=== PATIENT | male | born 1940 | race Caucasian/White ===

== ENCOUNTER 2016-12-03 22:24 | Emergency (ER) | payer MEDICARE ==
[~2016-12-03] VITALS: Ht 162.6 cm; Wt 84.0 kg
[~2016-12-03 22:24] MED LIST: ALPRAZOLAM0.5 MG PO; ANASTROZOLE1 MG PO; ASPIRIN EC81 MG PO; ASPIRIN LOW DOS81 MG PO; B-121000 MCG SL; CIPRO XR500 M2 PO; CIPROFLOXACN500 MG PO; CLONAZEPAM0.5 MG PO; CYTOTEC100 MCG PO; DALMANE30 MG OR; DIOVAN80 MG OR; DURAGESIC75 MCG/HR TD; FAMCICLOVIR500 MG PO; FISH OIL1200 M1 PO; FLOMAX0.4 M1 PO; FLOMAX0.4 MG OR; FOLIC ACID400 MC1 PO; LEVOTHYROXIN100 MCG PO; LISINOPRIL20 MG PO; LOPRESSOR50 MG OR; METO50TA52 PO; MORPHINE SUL30 M3 PO; MS CONTIN30 MG PO; NEURONTIN300 MG OR; PANTOPRAZOLE SO40 MG PO; PERCOCET 10/31 COMBO PO; PERCOCET1 TA1 OR; PREVACID30 M1 OR; PYRIDIUM200 MG PO; RESTORIL15 MG PO; RESTORIL30 MG OR; SIMVASTATIN40 MG PO; TESTOSTERON200 MG/ML IM; ULTRAM50 MG OR; VITAMIN D5000 UNIT PO; VYTORIN 10/401 TAB OR; XANAX XR0.5 MG PO; XANAX0.5 MG OR; XANAX0.5 MG PO; ZOFRAN ODT4 MG OR
[2016-12-03] MEDS ORDERED: LOPRESSOR50 M2 PO (22:54)
[2016-12-03] MEDS ORDERED: MORPHINE SULFAT60 M2 PO (22:57)
[2016-12-03] MEDS ORDERED: PERCOCET 10/31 COMBO PO (22:58)
[2016-12-03] MEDS ORDERED: FERROUS SULF324 M1 PO (23:01)
[2016-12-04 00:41] LABS: ACT PARTIAL THROMBO TIME 20.8 SECONDS (20.0-32.5); PROTHROMBIN TIME 10.9 SECONDS (9.0-12.5)
[2016-12-04 00:49] LABS: HEMATOCRIT 26.2 % (39.0-50.0); HEMOGLOBIN 9.1 g/dl (14.0-18.0); IMMATURE GRANULOCYTES 0.3 % (0.0-1.0); MEAN CELL VOLUME 92.6 fL CALC (80.0-100.0); MEAN CORPUSCULAR HGB 32.2 pG CALC (26.0-32.0); MEAN CORPUSCULAR HGB CONC 34.7 g/L CALC (32.0-36.0); NEUT# 9.7 thou/uL (1.82-7.42); RED BLOOD COUNT 2.83 mill/uL (4.70-6.10); RED CELL DISTRI WIDTH 13.6 % (11.5-15.5)
[2016-12-04 01:07] LABS: ALBUMIN 3.8 g/dL (3.2-5.0); ALKALINE PHOSPHATASE 80 u/l (38-126); AMYLASE 61 u/l (30-110); ANION GAP 14 (6-22 (CALC)); BILIRUBIN, TOTAL 0.5 mg/dL (0.0-1.4); BUN 11 mg/dL (8-23); BUN/CREATININE RATIO 15 (12-20 (CALC)); CALCIUM 9.5 mg/dL (8.4-10.2); CARBON DIOXIDE 20 mmol/l (22-30); CHLORIDE 96 mmol/l (95-108); CREATININE 0.7 mg/dL (0.7-1.3); GFR > 60 ML/MIN (>=60 (CALC)); GFR FOR AFR.AMER. > 60 ML/MIN (>=60 (CALC)); GLUCOSE 113 mg/dL (82-115); LIPASE 208 u/l (23-300); POTASSIUM 3.8 mmol/l (3.5-5.1); SGOT/AST 18 u/l (19-48); SGPT/ALT 25 u/l (11-66); SODIUM 127 mmol/l (137-146); TOTAL PROTEIN 6.8 g/dL (6.3-8.2)
[2016-12-04 01:17] LABS: MYOGLOBIN 104 ng/mL (0 - 121)
[2016-12-04 03:38] LABS: URINE BILIRUBIN - DIPSTICK NEGATIVE (NEGATIVE); URINE BLOOD DIPSTICK SMALL (NEGATIVE); URINE CLARITY CLEAR; URINE COLOR YELLOW; URINE GLUCOSE - DIPSTICK NEGATIVE (NEGATIVE); URINE KETONE 15 mg/dL (NEGATIVE); URINE LEUK ESTERASE TRACE (NEGATIVE); URINE NITRITE - DIPSTICK NEGATIVE (Negative); URINE PROTEIN - DIPSTICK NEGATIVE (NEG-TRACE); URINE SPECIFIC GRAVITY 1.015; URINE UROBILINOGEN - DIPSTICK 0.2 E.U./dL (0.2)
[2016-12-04 03:40] LABS: URINE RBC 0-2 RBC/hpf (0-5)
[2016-12-04 03:41] LABS: URINE BACTERIA FEW hpf; URINE SQUAMOUS EPITHELIAL CELL RARE EPI/hpf (0-FEW); URINE YEAST MODERATE hpf
[2016-12-04] MEDS ORDERED: BACTRIM DS1 TAB PO (03:58)
[2016-12-04 04:20] VITALS: BP 151/70
== END 2016-12-04 04:20 | disposition home or self-care (01) ==
LOC: ED 22:24 → ED-I 12-04 01:21 → ED 12-04 04:20
PROVIDERS: Emergency Medicine
DX: N39.0 Urinary tract infection, site not specified (principal); G89.29 Other chronic pain; D64.9 Anemia, unspecified; B96.20 Unspecified Escherichia coli [E. coli] as the cause of diseases classified elsewhere; R11.2 Nausea with vomiting, unspecified; R53.1 Weakness; I10 Essential (primary) hypertension; I25.810 Atherosclerosis of coronary artery bypass graft(s) without angina pectoris; Z95.1 Presence of aortocoronary bypass graft

== ENCOUNTER 2016-12-13 00:12 | Emergency (ER) | payer MEDICARE ==
[2016-12-13] VITALS (14 sets, daily range): BP systolic 54–122; BP diastolic 38–69
[~2016-12-13] VITALS: Ht 162.6 cm; Wt 90.9 kg
[~2016-12-13 00:12] MED LIST changes: +BACTRIM DS1 TAB PO; +FERROUS SULF324 M1 PO; +LOPRESSOR50 M2 PO; +MORPHINE SULFAT60 M2 PO
--- NOTE | 2016-12-13 00:23 | NUR ---
ARRIVES VIA [facility]. IVF IN PROGRESS, VIA NUMBER 22 IN THE RIGHT WRIST.
[2016-12-13] MEDS ORDERED: LISINOPRIL20 MG PO (00:41)
[2016-12-13] MEDS ORDERED: CLONAZEPAM1 MG PO (00:44)
--- NOTE | 2016-12-13 00:45 | NUR ---
PT'S B/P DOWN TO . DR SIDHU INFORMED. NS 2 LITERS UP TO B/L IV SITES.
[2016-12-13] MEDS ORDERED: CARAFATE1 GM PO (00:46)
[2016-12-13 00:48] LABS: IMMATURE GRANULOCYTES 0.6 % (0.0-1.0); MEAN CELL VOLUME 98.5 fL CALC (80.0-100.0); MEAN CORPUSCULAR HGB 31.6 pG CALC (26.0-32.0); MEAN CORPUSCULAR HGB CONC 32.1 g/L CALC (32.0-36.0); NEUT# 6.61 thou/uL (1.82-7.42); RED BLOOD COUNT 1.96 mill/uL (4.70-6.10); RED CELL DISTRI WIDTH 14.4 % (11.5-15.5)
[2016-12-13 00:55] LABS: PROTHROMBIN TIME 10.5 SECONDS (9.0-12.5)
[2016-12-13 00:58] LABS: ALKALINE PHOSPHATASE 74 u/l (38-126); AMYLASE 62 u/l (30-110); ANION GAP 16 (6-22 (CALC)); BILIRUBIN, TOTAL 0.2 mg/dL (0.0-1.4); BUN 19 mg/dL (8-23); BUN/CREATININE RATIO 11 (12-20 (CALC)); CALCIUM 8.5 mg/dL (8.4-10.2); CARBON DIOXIDE 18 mmol/l (22-30); CHLORIDE 104 mmol/l (95-108); CREATININE 1.8 mg/dL (0.7-1.3); GFR 37 ML/MIN (>=60 (CALC)); GFR FOR AFR.AMER. 45 ML/MIN (>=60 (CALC)); GLUCOSE 158 mg/dL (82-115); LIPASE 158 u/l (23-300); POTASSIUM 4.8 mmol/l (3.5-5.1); SGOT/AST 15 u/l (19-48); SGPT/ALT 21 u/l (11-66); SODIUM 133 mmol/l (137-146); TOTAL PROTEIN 5.6 g/dL (6.3-8.2)
[2016-12-13 01:01] LABS: HEMATOCRIT 19.3 % (39.0-50.0); HEMOGLOBIN 6.2 g/dl (14.0-18.0)
[2016-12-13 01:13] LABS: MYOGLOBIN 136 ng/mL (0 - 121)
--- NOTE | 2016-12-13 01:52 | NUR ---
PT COMPLETED 2 LITERS NS HERE AND 750ML BY EMS. LR AT 100 UP NOW. B/P 70//
[2016-12-13 01:54] LABS: URINE BILIRUBIN - DIPSTICK NEGATIVE (NEGATIVE); URINE BLOOD DIPSTICK NEGATIVE (NEGATIVE); URINE CLARITY CLEAR; URINE COLOR YELLOW; URINE GLUCOSE - DIPSTICK NEGATIVE (NEGATIVE); URINE KETONE NEGATIVE (NEGATIVE); URINE LEUK ESTERASE NEGATIVE (NEGATIVE); URINE PH 5.5 (4.5-8.0); URINE PROTEIN - DIPSTICK NEGATIVE (NEG-TRACE); URINE UROBILINOGEN - DIPSTICK 0.2 E.U./dL (0.2)
[2016-12-13 01:59] LABS: URINE NITRITE - DIPSTICK POSITIVE (Negative)
[2016-12-13 02:09] LABS: URINE BACTERIA FEW hpf; URINE HYALINE CAST FEW lpf (NONE-RARE); URINE RBC 0-2 RBC/hpf (0-5); URINE SQUAMOUS EPITHELIAL CELL FEW EPI/hpf (0-FEW)
--- NOTE | 2016-12-13 02:24 | NUR ---
PT WAS ON WAY TO CT, THEN BACK TO ROOM CT ON HOLD. 1ST UNIT OF PRBC UP.
[2016-12-13 02:30] LABS: BARBITURATES NEGATIVE (NEGATIVE); COCAINE NEGATIVE (NEGATIVE); METHADONE NEGATIVE (NEGATIVE); OXCYCODONE POSITIVE (NEGATIVE); TETRAHYDROCANNABIONOL NEGATIVE (NEGATIVE); TRICYLIC ANTIDEPRESSANTS NEGATIVE (NEGATIVE)
--- NOTE | 2016-12-13 02:35 | NUR ---
MEASURED PT'S HENATOMA TO LEFT RIB AREA AND 23CM BY 9 CM. BLOOD INFUSING, PT KEEPS STATING HE WANTS TO LIVE.
--- NOTE | 2016-12-13 03:10 | NUR ---
PT BACK FROM CT, ANOTHER WARM BLANKET APPLIED.
--- NOTE | 2016-12-13 03:20 | NUR ---
JUNAID COTA TOOK OVER PT CARE. PT ADMITTED. NO REACTION FROM BLOOD AT THIS TIME. IV LR AND BLOOD INFUSING TO 2 IV SITES.
--- NOTE | 2016-12-13 03:20 | NUR ---
report received from ER Timothy Rubalcava RN; pt admit ER-10 (ICU overflow); admission assessment completed at this time; pt alert and oriented; denies pain at current; no n/v noted; c/c weakness, feeling faint, dizziness and diarrhea (pt admits to taking a laxative for constipation prior to diarrhea); resp even and unlabored; lungs clear right whitley/sign. diminished left whitley; skin color pale; o2 per nc at 2L; hr reg; st/pvc on monitor; weak pedal pulses; trace edema noted to ble; abd soft/distended with bs present; last bm 12/10/16; benton to gravity draining clear yellow urine; cath strap intact; #18 in rh with prbc's infusing per protocol; #20 in lw patent with lr bolus infusing; no redness or edema noted at site; generalized bruising/ecchymosis noted to upper extremities; lg bruise/hematoma noted to left lat. torso measuring 24cm x 9cm; painful to touch; repositioned for comfort; oriented to call light system; will continue to monitor closely
--- NOTE | 2016-12-13 04:00 | NUR ---
awake; 1st unit of prbc's continue to infuse without difficulty; no s/sx of reaction noted; spouse remains at bedside; pt with complaints of back pain; informed tylenol can be given; pt requesting xanax/ morphine/percocet; pt informed bp is currently too low for sedatives or narcotics; repositioned for comfort; will continue to monitor
--- NOTE | 2016-12-13 04:45 | NUR ---
2nd unit of prbc's completed; iv flushed and patent/tubing changed; no s/sx of reaction noted; spouse remains at bedside; pt continues with complaints of lower back pain and neck pain rating 10/10; will medicate with percocet; st/pvc on mointor; benton to gravity; will continue to monitor
--- NOTE | 2016-12-13 04:50 | NUR ---
2nd unit of prbc's verified at bedside as per protocl; pt explained s/sx of possible reaction and to notify staff immed.; prbc's initiated; percocet explained and administered; repositioned for comfort; pt and spouse updated on plan of care including transfer to different facility for higher level of care; po fluids provided; will continue to monitor
--- NOTE | 2016-12-13 05:24 | NUR ---
spouse Justine has departed; request to be call prior to transfer at [phone]
--- NOTE | 2016-12-13 05:46 | NUR ---
spouse Justine called per credit underwriter; spouse updated pt will be transferred to [facility] via [facility] in approx 30 min; appreciative of update and care
--- NOTE | 2016-12-13 05:58 | NUR ---
report called to JUNAID Kim at [facility]
--- NOTE | 2016-12-13 06:05 | NUR ---
[facility] ON UNIT; REPORT GIVEN
--- NOTE | 2016-12-13 06:28 | NUR ---
prbc's infusing per pump/remainder of prbc's released with [facility] transport; pt discharged via stretcher in stable condition; belongings sent with pt;
== END 2016-12-13 06:28 | disposition short-term general hospital (02) ==
LOC: ED 00:12 → ED-I 01:55 → ED 02:13 → ED-I 02:14 → ED 02:14 → ED-I 06:28 → ED 06:28
PROVIDERS: Internal Medicine
PROC: 0T9B70Z Drainage of Bladder with Drainage Device, Via Natural or Artificial Opening (ICD-10-PCS; principal; 2016-12-13)
PROC: 30233N1 Transfusion of Nonautologous Red Blood Cells into Peripheral Vein, Percutaneous Approach (ICD-10-PCS; 2016-12-13)
DX: N39.0 Urinary tract infection, site not specified (principal); D64.9 Anemia, unspecified; I95.9 Hypotension, unspecified; E86.1 Hypovolemia; J94.2 Hemothorax; I25.810 Atherosclerosis of coronary artery bypass graft(s) without angina pectoris; Z95.1 Presence of aortocoronary bypass graft; Z91.81 History of falling; R19.7 Diarrhea, unspecified; R53.1 Weakness
CPT/HCPCS: P9016; S0164

== ENCOUNTER 2018-11-14 17:45 | Inpatient (IN) | payer MEDICARE ==
[~2018-11-14] VITALS: Ht 162.6 cm; Wt 108.0 kg
[~2018-11-14 17:45] MED LIST changes: +CARAFATE1 GM PO; +CLONAZEPAM1 MG PO
--- NOTE | 2018-11-14 17:58 | NUR ---
PT ARRIVED VIA EMS. PT DIFFICULTY RECALLING HISTORY. STATES IS RELATED TO NOT FEELING WELL. ORIENTED X3.
[2018-11-14 18:36] LABS: HEMATOCRIT 29.3 % (39.0-50.0); HEMOGLOBIN 9.8 g/dl (14.0-18.0); IMMATURE GRANULOCYTES 0.7 % (0.0-5.0); MEAN CELL VOLUME 94.2 fL CALC (80.0-100.0); MEAN CORPUSCULAR HGB 31.5 pG CALC (26.0-32.0); MEAN CORPUSCULAR HGB CONC 33.4 g/L CALC (32.0-36.0); NEUT# 14.29 thou/uL (1.82-7.42); RED BLOOD COUNT 3.11 mill/uL (4.70-6.10)
--- NOTE | 2018-11-14 18:37 | NUR ---
PATIENT MEDICATED WITH TYLENOL AND MOTRIN FOR FEVER.
--- NOTE | 2018-11-14 18:40 | NUR ---
PATIENT REPORT GIVEN TO JUNAID NELSON. CARE RELINQUISHED.
[2018-11-14 18:55] LABS: ALBUMIN 4.3 g/dL (3.2-5.0); ALKALINE PHOSPHATASE 84 u/l (38-126); ANION GAP 18 (6-22 (CALC)); BUN 17 mg/dL (8-23); BUN/CREATININE RATIO 16 (12-20 (CALC)); CARBON DIOXIDE 28 mmol/l (22-30); CHLORIDE 91 mmol/l (95-108); CREATININE 1.1 mg/dL (0.7-1.3); GFR > 60 ML/MIN (>=60 (CALC)); GFR FOR AFR.AMER. > 60 ML/MIN (>=60 (CALC)); SGOT/AST 24 u/l (19-48); SODIUM 133 mmol/l (137-146); TOTAL PROTEIN 7.6 g/dL (6.3-8.2)
[2018-11-14 18:57] LABS: BILIRUBIN, TOTAL 0.6 mg/dL (0.0-1.4)
[2018-11-14 19:05] LABS: MYOGLOBIN 105 ng/mL (0 - 121)
[2018-11-14 19:26] LABS: URINE BILIRUBIN - DIPSTICK NEGATIVE (NEGATIVE); URINE BLOOD DIPSTICK TRACE-INTACT (NEGATIVE); URINE COLOR YELLOW; URINE GLUCOSE - DIPSTICK NEGATIVE (NEGATIVE); URINE KETONE NEGATIVE (NEGATIVE); URINE PH 6.5 (4.5-8.0); URINE PROTEIN - DIPSTICK NEGATIVE (NEG-TRACE); URINE UROBILINOGEN - DIPSTICK 0.2 E.U./dL (0.2)
[2018-11-14 19:29] LABS: URINE LEUK ESTERASE SMALL (NEGATIVE); URINE NITRITE - DIPSTICK POSITIVE (Negative)
--- NOTE | 2018-11-14 19:30 | NUR ---
DISCUSSED TREATMENT AND ADMISSION PLANS.
[2018-11-14 19:35] LABS: URINE BACTERIA MODERATE hpf
[2018-11-14] MEDS ORDERED: SEROQUEL100 MG PO (20:36)
[2018-11-14 21:30] VITALS: BP 121/51
--- NOTE | 2018-11-14 21:30 | NUR ---
Admission Note Report Given to: JUNAID LAGOS Transported by: Wheelchair X Stretcher Transported with: X Nurse Transporter X Patent IV O2 X Rn Clinician
--- NOTE | 2018-11-14 22:00 | NUR ---
PATIENT ADMITTED FROM ER VIA STRETCHER WITH ER STAFF IN ATTENDANCE. PATIENT TRANSFERRED TO BED. PATIENT AWAKE ALERT AND ORIENTEDX3. AT BEDSIDE. PATIENT WITH RAMIREZ CATH PATENT AND DRAINING CLEAR YELLOW URINE. PATIENT WITH IV SITE TO LEFT HAND-IVF NS HUNG AND INFUSING AT 100CC/HR. SITE IS HEALTHY AT THIS TIME. TELE MONITOR IN PLACE. 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 PATIENT NECK WITH TILT TO THE LEFT-STATES RESULT OF NECK INSURY AND SURGERY YEARS AGO. PATIENT WITH CHRONIC PAIN ISSUES-MEDICATED WITH MORPHINE ER 60MG PO ORDERED AND WITH PERCOCET FOR LOWER BACK PAIN. MEDICATED WITH SEROQUEL ORDERED. ORIENTED TO ROOM AND SURROUNDINGS. INSTRUCTED ON USE OF NURSE CALL LIGHT AND TV REMOTE. PROVIDED WITH COT AND LINENS TO STAY THE NIGHT. SAFETY PRECAUTIONS REINFORCED. CALL LIGHT IN REACH. WILL CONT TO MONITOR.
[2018-11-14 23:34] VITALS: BP 106/46
--- NOTE | 2018-11-15 04:00 | NUR ---
PATIENT APPEARS SLEEPING WITH EYES CLOSED-HOB SLIGHTLY ELEVATED. RESP ARE SHALLOW AND UNLABORED. RESTING ON COT PROVIDED. IVF PATENT AND INFUSING AT 100CC/HR VIA LEFT HAND SITE. TELE MONITOR IN PLACE. RAMIREZ PATENT AND DRAINING YELLOW URINE. CALL LIGHT IN REACH. WILL CONT TO MONITOR.
[2018-11-15 05:28] VITALS: BP 88/42
[2018-11-15 08:38] VITALS: BP 90/50
--- NOTE | 2018-11-15 08:43 | NUR ---
REPORT WAS RECEIVED FROM YOLIS .ASSESSMENT DONE. TELE IN PLACE. PT IS A&O X3 BUT CAN BE FORGETFUL AT TIMES. MEDICATED PT WITH MORPHINE PO FOR PAIN IN FEET 12/15 SEE EMAR. LEGS ELEVATED ON PILLOWS. RAMIREZ IS PATENT WITH YELLOW URINE. PT UNSURE WHEN HIS LAST BM WAS. IVF INFUSING WELL. IN ROOM. CALL LIGHT IN REACH.
--- NOTE | 2018-11-15 11:30 | NUR ---
DR. FRANKLIN AT BEDSIDE TO ASSESS PT. IN ROOM. NOTIFIED MD THAT I DID NOT GAVE PT BP MEDICATION DUE TO BP WAS 90/50. CALL LIGHT IN REACH.
[2018-11-15 11:31] VITALS: BP 95/53
--- NOTE | 2018-11-15 13:28 | NUR ---
PHARMACY CALLED TO TALK TO PATIENT. DISCUSSED PATIENT MEDICATION AND SIDE EFFECTS. DISCUSSED PATIENT'S PAST MEDICAL HISTORY AND ABOUT UPCOMING APPOINTMENTS. PATIENT STATED THAT HE AND HIS PHYSICIANS ARE TRYING TO CUT BACK ON PAIN MEDICATIONS AND TOLD ME ABOUT HIS SUCCESS SO FAR. PATIENT STATED NO FURTHER QUESTIONS OR CONCERNS.
[2018-11-15 15:29] VITALS: BP 98/53
--- NOTE | 2018-11-15 15:49 | NUR ---
MEDICATED PT WITH TYLENOL FOR TEMP 100.2. ROOM MADE COOL. PT WANTS HIS PERCOCET TOLD PT IS NOT DUE YET. PT VERBALIZED UNDERSTANDING. PT DENIES ANY OTHER NEEDS AT THIS TIME. IN ROOM. CALL LIGHT IN REACH.
--- NOTE | 2018-11-15 18:38 | NUR ---
CHECK PT TEMP IS 102.0. MADE ROOM COOL AND ICE PACK APPLIED TO PT. CALL LIGHT IN REACH.
--- NOTE | 2018-11-15 18:55 | NUR ---
REPORT RECEIVED FROM JUNAID IZAGUIRRE. PT RESTING IN BED. FAMILY AT BED SIDE. ALERT AND ORIENTED. RESPIRATIONS EVEN AND UNLABORED ON RA. LUNGS SOUND CLEAR DIMINISHED. PEDAL PULSES STRONG. IV #22 LH PATENT AND APPEARS HEALTHY. TELE IN PLACE. SAFETY PRECAUTIONS IN PLACE. WILL CONTINEUT TO MONITOR.
[2018-11-15 19:00] VITALS: BP 90/48
[2018-11-15 23:09] VITALS: BP 102/52
[2018-11-16] VITALS (7 sets, daily range): BP systolic 86–120; BP diastolic 48–62
--- NOTE | 2018-11-16 00:23 | NUR ---
PT HYPOTENSIVE. PT PLACED IN [place] POSITION. NOTED TO BE EFFECTIVE.
[2018-11-16 03:57] LABS: HEMATOCRIT 31.9 % (39.0-50.0); HEMOGLOBIN 10.3 g/dl (14.0-18.0); IMMATURE GRANULOCYTES 2.5 % (0.0-5.0); MEAN CELL VOLUME 98.8 fL CALC (80.0-100.0); MEAN CORPUSCULAR HGB 31.9 pG CALC (26.0-32.0); MEAN CORPUSCULAR HGB CONC 32.3 g/L CALC (32.0-36.0); RED BLOOD COUNT 3.23 mill/uL (4.70-6.10); RED CELL DISTRI WIDTH 14.6 % (11.5-15.5)
[2018-11-16 03:58] LABS: MANUAL DIFFERENTIAL YES; PLATELET COUNT 167 thou/uL (130-400)
[2018-11-16 04:10] LABS: PLATELET ESTIMATE NORMAL
[2018-11-16 04:14] LABS: BILIRUBIN, TOTAL 0.4 mg/dL (0.0-1.4); CREATININE 1.4 mg/dL (0.7-1.3); MAGNESIUM 1.8 mg/dL (1.6-2.3); POTASSIUM 4.5 mmol/l (3.5-5.1); TOTAL PROTEIN 6.2 g/dL (6.3-8.2)
[2018-11-16 04:15] LABS: ALBUMIN 3.3 g/dL (3.2-5.0)
--- NOTE | 2018-11-16 04:15 | NUR ---
PT RESTING IN BED. RESPIRATIONS SHALLOW ON RA. SAFETY PRECAUTIONS IN PLACE. WILL CONTINUE TO MONITOR.
--- NOTE | 2018-11-16 07:45 | NUR ---
PT RESTING IN BED WITH EYES CLOSED. AROUSES TO VERBAL STIMULI. PT IS ALERT AND ORIENTED X3. SHIFT ASSESSMENT COMPLETED AT THIS TIME. IV PATENT 1. CALL LIGHT IN REACH. WILL CONTINUE TO MONITOR
--- NOTE | 2018-11-16 11:03 | NUR ---
DR FRANKLIN AT BEDSIDE TO DISCUSS PLAN OF CARE
--- NOTE | 2018-11-16 12:00 | NUR ---
PT RESTING IN BED AT BEDSIDE. RESP ARE EVEN AND UNLABORED. NO DISTRESS NOTED. CALL LIGHT IN REACH. WILL CONTINUE TO MONITOR.
--- NOTE | 2018-11-16 15:39 | NUR ---
PT RESTING IN BED RESP ARE EVEN AND UNALBROED. VISITORS IN ROOM. RESP ARE EVEN AND UNLABORED. NO DISTRESS NOTED. CALL LIGHT IN REACH. WILL CONTINUE TO MONITOR.
--- NOTE | 2018-11-16 18:50 | NUR ---
REPORT RECEIVED FROM JUNAID VARGAS. PT RESTING IN BED, WITH EYES CLOSED. RESPIRATIONS EVEN AND UNLABORED ON RA. WILL CONTINUE TO MONITOR
--- NOTE | 2018-11-16 21:40 | NUR ---
PT RESTING IN BED ALERT AND ORIENTED. REPIRATIONS EVEN AND UNLABORED ON RA. LUNGS SOUND CLEAR/DIMINISHED. PEDAL PULSES WEAK. TELE IN PLACE. RAMIREZ DRAINING TO GRAVITY. PT ENCOURAGED TO USE CALL LEYVA IF ANY NEEDS SHOULD ARISE. SAFETY PRECAUTIONS IN PLACE. WILL CONTINUE TO MONITOR.
[2018-11-17 00:24] VITALS: BP 123/62
--- NOTE | 2018-11-17 01:43 | NUR ---
PT RESTING IN BED WITH EYES CLOSED. RESPIRATIONS EVEN AND UNLABORED ON RA. NO S/S OF DISTRESS AT THIS TIME. WILL CONTINUE TO MONITOR.
--- NOTE | 2018-11-17 03:47 | NUR ---
PT RESTING IN BED WITH EYES CLOSED, RESPIRATIONS EVEN AND UNLABORED ON RA. NO S/S OF DISTRESS AT THIS TIME. WILL CONTNINUE TO MONITOR.
[2018-11-17 04:30] VITALS: BP 120/50
[2018-11-17 05:25] LABS: HEMATOCRIT 30.9 % (39.0-50.0); HEMOGLOBIN 9.9 g/dl (14.0-18.0); IMMATURE GRANULOCYTES 0.6 % (0.0-5.0); MEAN CELL VOLUME 99.4 fL CALC (80.0-100.0); MEAN CORPUSCULAR HGB 31.8 pG CALC (26.0-32.0); NEUT# 12.49 thou/uL (1.82-7.42); RED BLOOD COUNT 3.11 mill/uL (4.70-6.10); RED CELL DISTRI WIDTH 14.6 % (11.5-15.5)
[2018-11-17 05:46] LABS: ALBUMIN 3.1 g/dL (3.2-5.0); ALKALINE PHOSPHATASE 81 u/l (38-126); ANION GAP 14 (6-22 (CALC)); BILIRUBIN, TOTAL 0.4 mg/dL (0.0-1.4); BUN 15 mg/dL (8-23); BUN/CREATININE RATIO 17 (12-20 (CALC)); CARBON DIOXIDE 24 mmol/l (22-30); CHLORIDE 100 mmol/l (95-108); CREATININE 0.9 mg/dL (0.7-1.3); GFR > 60 ML/MIN (>=60 (CALC)); GFR FOR AFR.AMER. > 60 ML/MIN (>=60 (CALC)); SGOT/AST 26 u/l (19-48); SODIUM 133 mmol/l (137-146); TOTAL PROTEIN 6.1 g/dL (6.3-8.2)
--- NOTE | 2018-11-17 06:45 | NUR ---
RECIEVED REPORT FROM JUNAID YU. ASSUMED PT CARE.
[2018-11-17 08:30] VITALS: BP 120/68
--- NOTE | 2018-11-17 08:30 | NUR ---
PT A&OX3, ABLE TO MAKE NEEDS KNOWN. ASSESSMENT COMPLETED. JAMES REMAINS PATENT DRAINING TO BSD VIA GRAVITY. PT AFEBRILE. CALL LIGHT IN REACH. OFFERS NO COMPLAINTS AT THIS TIME. CALL LIGHT IN REACH. WILL MONITOR.
[2018-11-17 11:27] VITALS: BP 123/71
[2018-11-17] MEDS ORDERED: ROCEPHIN 2 GM2 GM IM (11:56)
--- NOTE | 2018-11-17 12:30 | NUR ---
DR. CULP AND CARLA BURNETT AT BEDSIDE FOR ASSESSMENT AND TO DISCUSS PLAN OF CARE.
[2018-11-17 15:05] VITALS: BP 120/70
--- NOTE | 2018-11-17 15:30 | NUR ---
IV site discontinued, cath intact. No edema , no redness, voices no discomfort.
--- NOTE | 2018-11-17 15:58 | NUR ---
Discharge instructions given. Patient verbalizes understanding of same. Discharged in stable condition via Wheelchair to Home with family. All belongings sent with pt.
== END 2018-11-17 16:00 | DRG 699 ==
LOC: ED 17:45 → ED-I 20:11 → ED 20:37 → MS2 20:38
PROVIDERS: Emergency Medicine; Internal Medicine Nephrology; ADMIT Internal Medicine; ATTEND Internal Medicine
PROC: 0T9B70Z Drainage of Bladder with Drainage Device, Via Natural or Artificial Opening (ICD-10-PCS; principal; 2018-11-14)
DX: T83.518A Infection and inflammatory reaction due to other urinary catheter, initial encounter (principal); N39.0 Urinary tract infection, site not specified; I10 Essential (primary) hypertension; I48.91 Unspecified atrial fibrillation; I73.9 Peripheral vascular disease, unspecified; I25.10 Atherosclerotic heart disease of native coronary artery without angina pectoris; F41.8 Other specified anxiety disorders; M19.90 Unspecified osteoarthritis, unspecified site; E03.9 Hypothyroidism, unspecified; K21.9 Gastro-esophageal reflux disease without esophagitis; N40.1 Benign prostatic hyperplasia with lower urinary tract symptoms; R33.8 Other retention of urine; D63.8 Anemia in other chronic diseases classified elsewhere; G89.21 Chronic pain due to trauma; Z95.1 Presence of aortocoronary bypass graft; B96.89 Other specified bacterial agents as the cause of diseases classified elsewhere; Y84.6 Urinary catheterization as the cause of abnormal reaction of the patient, or of later complication, without mention of misadventure at the time of the procedure; Z96.652 Presence of left artificial knee joint
CPT/HCPCS: G0378

== ENCOUNTER 2019-05-03 02:06 | Inpatient (IN) | payer MEDICARE ==
[~2019-05-03] VITALS: Ht 175.3 cm; Wt 104.0 kg
[~2019-05-03 02:06] MED LIST changes: +ROCEPHIN 2 GM2 GM IM; +SEROQUEL100 MG PO
--- NOTE | 2019-05-03 02:08 | NUR ---
BY EMS TO ROOM 6
--- NOTE | 2019-05-03 02:50 | NUR ---
TOLERATED RAMIREZ PLACEMENT WELL.
[2019-05-03 03:24] LABS: HEMOGLOBIN 10.1 g/dl (14.0-18.0); IMMATURE GRANULOCYTES 0.4 % (0.0-5.0); MEAN CELL VOLUME 95.2 fL CALC (80.0-100.0); MEAN CORPUSCULAR HGB 32.1 pG CALC (26.0-32.0); MEAN CORPUSCULAR HGB CONC 33.7 g/L CALC (32.0-36.0); NEUT# 9.3 thou/uL (1.82-7.42); RED BLOOD COUNT 3.15 mill/uL (4.70-6.10); RED CELL DISTRI WIDTH 13.6 % (11.5-15.5)
--- NOTE | 2019-05-03 03:30 | NUR ---
RESTING QUIETLY AWAITING TEST RESULTS
[2019-05-03 03:31] LABS: URINE BILIRUBIN - DIPSTICK NEGATIVE (NEGATIVE); URINE BLOOD DIPSTICK TRACE-INTACT (NEGATIVE); URINE COLOR YELLOW; URINE GLUCOSE - DIPSTICK NEGATIVE (NEGATIVE); URINE KETONE NEGATIVE (NEGATIVE); URINE UROBILINOGEN - DIPSTICK 0.2 E.U./dL (0.2)
[2019-05-03 03:40] LABS: URINE LEUK ESTERASE SMALL (NEGATIVE); URINE NITRITE - DIPSTICK POSITIVE (Negative)
[2019-05-03 03:44] LABS: ALKALINE PHOSPHATASE 92 u/l (38-126); BUN 15 mg/dL (8-23); BUN/CREATININE RATIO 14 (12-20 (CALC)); CHLORIDE 89 mmol/l (95-108); CREATININE 1.1 mg/dL (0.7-1.3); GFR > 60 ML/MIN (>=60 (CALC)); GFR FOR AFR.AMER. > 60 ML/MIN (>=60 (CALC)); POTASSIUM 3.3 mmol/l (3.5-5.1); SGOT/AST 23 u/l (19-48); SODIUM 132 mmol/l (137-146)
[2019-05-03 03:44] LABS: URINE PROTEIN - DIPSTICK NEGATIVE (NEG-TRACE)
[2019-05-03 03:45] LABS: URINE BACTERIA MANY hpf; URINE EPITHELIAL CELLS FEW EPI/hpf (0-FEW)
[2019-05-03 03:54] LABS: ALBUMIN 4.3 g/dL (3.2-5.0); ANION GAP 16 (6-22 (CALC)); BILIRUBIN, TOTAL 0.8 mg/dL (0.0-1.4); CARBON DIOXIDE 30 mmol/l (22-30); TOTAL PROTEIN 8.3 g/dL (6.3-8.2)
--- NOTE | 2019-05-03 04:30 | NUR ---
RESTING COMFORTABLY IV INFUSING WELL.
--- NOTE | 2019-05-03 05:30 | NUR ---
DISCUSSED ADMISSION WITH PT. GOING HOME.
--- NOTE | 2019-05-03 06:50 | NUR ---
Admission Note Report Given to: JUNAID DOCKERY Transported by: Wheelchair X Stretcher Transported with: X Nurse Transporter X Patent IV O2 Mid Level Game Designer
--- NOTE | 2019-05-03 07:09 | NUR ---
PT ARRIVED TO MED/SURG ROOM 271 IN STABLE CONDITION VIA STRETCHER ACCOMPANIED BY MANDORN;PT TRANSFERRED TO HOSPITAL BED WITH X4 PERSON ASSIST;VS AND WT OBTAINED BY CARMEN GARDNER;INTRODUCED SELF TO PT AND POC DISCUSSED;PT ORIENTED TO ROOM AND CALL LIGHT SYSTEM AND VERBALIZES UNDRSTANDING;ALL SAFETY PRECAUTIONS IN PLACE INCLUDING BED IN THE LOWEST POSITION;CALL LIGHT IN REACH;WILL CONTINUE TO MONITOR
[2019-05-03 07:34] VITALS: BP 116/63
--- NOTE | 2019-05-03 09:15 | NUR ---
PT RESTING IN SUPINE POSITION,A&O X2;VS OBTAINED AND ASSESSMENT COMPLETED;PT REPORTS FEVER AND UTI LIKE SYMPTOMS STARTING YESTERDAY 05/02/19, PT DOES STRAIGHT CATH HIMSELF AT HOME AND REPORTS FREQUENT UTI'S;PT DENIES ANY CURRENT PAIN OR DISCOMFORTS,PAIN SCALE AND REPORTING EDUCATED;RESPIRATIONS EVEN AND UNLABORED ON RA,DIMINISHED LUNG SOUNDS NOTED;ABDOMEN DISTENDED/SOFT ON PALPATION AND ACTIVE IN ALL 4 QUADRANTS, LAST BM 05/01/19;RAMIREZ CATHETER PATENT DRAINING CLEAR/YELLOW URINE TO GRAVITY WITH EASE,STAT LOCK TO LEFT THIGH NOTED;#22G TO LEFT FOREARM FLUSHED AND PATENT,NS STARTED @125ML/HR PER ORDER;ALLERGY AND FALL BAND APPLIED;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
[2019-05-03 09:17] VITALS: BP 106/55
--- NOTE | 2019-05-03 11:30 | NUR ---
PT RESTING IN SEMI FOWLERS POSITION;RESPIRATIONS EVEN AND UNLABORED ON RA;PT DENIES ANY CURRENT PAIN OR NEEDS;IV FLUIDS INFUSING TO LFA WITH EASE;RAMIREZ CATHETER REMAINS PATENT DRAINING TO GRAVITY;PT ENCOURAGED TO CALL FOR ASSISTANCE IF NEEDED;FALL PRECAUTIONS IN PLACE WITH CALL LIGHT IN REACH;WILL CONTINUE TO MONITOR
--- NOTE | 2019-05-03 11:48 | NUR ---
AT BEDSIDE DISCUSSING POC WITH PATIENT.
--- NOTE | 2019-05-03 12:04 | NUR ---
TOLD BY DR. CURIEL THAT HE ORDERED A INFECTIOUS DISEASE CONSULTATION TO DR. CONTRERAS. CALLED DR. CONTRERAS AT [phone]. LEFT MESSAGE ON HIS PHONE REGARDING CONSULTATION.
--- NOTE | 2019-05-03 12:26 | NUR ---
DR. CONTRERAS CALLED BACK ASKING ABOUT THE CONSULTATION STATED HE WILL CALL AND TALK NURSE IF HE HAS ANY QUESTIONS AND THAT HE WOULD LOOK AT THE LABS AND COME SEE THE PATIENT EITHER TODAY OR TOMORROW.
[2019-05-03 14:50] VITALS: BP 104/50
--- NOTE | 2019-05-03 16:15 | NUR ---
PT RESTING IN SUPINE POSITION WITH SPOUSE AT BEDSIDE;RESPIRATIONS EVEN AND UNLABORED ON RA;PT DENIES ANY CURRENT PAIN OR DISCOMFORTS;IV FLUIDS INFUSING TO LFA WITH EASE;RAMIREZ CATHETER PATENT;ASSESSMENT REMAINS UNCHANGED AT THIS TIME;ENCOURAGED TO CALL FOR ASSISTANCE IF NEEDED;FALL PRECAUTIONS REMAIN IN PLACE WITH CALL LIGHT IN REACH;WILL CONTINUE TO MONITOR
--- NOTE | 2019-05-03 17:25 | NUR ---
PT CURRENT TEMP 100.3;PT MEDICATED WITH PRN TYLENOL 650MG PO AT THIS TIME,BLANKETS REMOVED AND AC LOWERED;WILL CONTINUE TO MONITOR FOR EFFECTIVENESS
--- NOTE | 2019-05-03 18:55 | NUR ---
REPORT RECEIVED FROM KALIN. PATE. PT RESTING IN BED. NO S/S OF DISTRESS AT THIS TIME. SAFETY PRECAUTIONS IN PLACE. WILL CONTINUE TO MONITOR
[2019-05-03 19:43] VITALS: BP 98/50
--- NOTE | 2019-05-03 20:05 | NUR ---
PT RESTING IN BED ALERT AND ORIENTED, RESPIRATIONS EVEN AND UNLABORED ON RA. LUNGS SOUND DIMINISHED. PEDAL PULSES WEAK. PT DENIES ANY PAIN OR DISCOMFORT AT THIS TIME. BANDAGE TO LEFT FORARM SOILED, BANDAGE REMOVED, PICTURE OBTAINED FOR CHART, WOUND CLEANED WITH SALINE, NEW BANDAGE APPLIED. #22 LFA PATENT AND APPEARS HEALTHY. SAFETY PRECAUTIONS IN PL;CHANDRAKANT. WILL CONTINUE TO MONITOR.
[2019-05-03 22:58] VITALS: BP 102/54
--- NOTE | 2019-05-04 00:07 | NUR ---
PT RESTING IN BED WITH EYES CLOSED. RESPIRATIONS EVEN AND UNLABORED ON RA. NO S/S OF DISTRESS AT THIS TIME. SAFETY PRECAUTIONS IN PLACE. WILL CONTINUE TO MONITOR.
--- NOTE | 2019-05-04 04:45 | NUR ---
PT RESTING IN BED. RESPIRATIONS EVEN AND UNLABORED ON RA. NO S/S OF DISTRESS AT THIS TIME. SAFETY PRECAUTIONS IN PLACE. WILL CONTINUE TO MONITOR.
[2019-05-04 04:56] VITALS: BP 111/55
[2019-05-04 05:12] LABS: HEMATOCRIT 33.5 % (39.0-50.0); MEAN CORPUSCULAR HGB 31.3 pG CALC (26.0-32.0); MEAN CORPUSCULAR HGB CONC 29.9 g/L CALC (32.0-36.0); RED BLOOD COUNT 3.2 mill/uL (4.70-6.10); RED CELL DISTRI WIDTH 14.7 % (11.5-15.5)
[2019-05-04 05:13] LABS: MEAN CELL VOLUME 104.7 fL CALC (80.0-100.0)
[2019-05-04 05:37] LABS: BUN 12 mg/dL (8-23); BUN/CREATININE RATIO 15 (12-20 (CALC)); CREATININE 0.8 mg/dL (0.7-1.3); GFR > 60 ML/MIN (>=60 (CALC)); GFR FOR AFR.AMER. > 60 ML/MIN (>=60 (CALC)); POTASSIUM 3.6 mmol/l (3.5-5.1); SODIUM 132 mmol/l (137-146)
[2019-05-04 05:39] LABS: ANION GAP 13 (6-22 (CALC)); CARBON DIOXIDE 23 mmol/l (22-30); CHLORIDE 100 mmol/l (95-108)
[2019-05-04 07:53] VITALS: BP 90/49
--- NOTE | 2019-05-04 07:53 | NUR ---
PT SITTING IN BED. A&O X3. NO DISTRESS NOTED. PT C/O OF PAIN IN THE LT HIP. PAIN MEDICATION GIVEN. LOWER LEG BILAT PITTING EDEMA. LEGS ELEVATED WITH PILLOW. PT STATES WOULD BE BRINING IN HIS WALKER FROM HOME, EXPLAINED TO THE PT THAT PERCOCET FROM HOME IS NOT TO BE BROUGHT IN OR TAKEN. PT VERBALIZED UNDERSTANDING. TEMP ELEVATED AT 102.2. TYLENOL GIVEN WILL REASSESS. NO OTHER NEEDS AT THIS TIME. ASSESSMENT COMPLETED. CALL LIGHT IN REACH CONTINUE TO MONITOR.
--- NOTE | 2019-05-04 08:41 | NUR ---
INFORMED BY CARMEN PT HAD CALLED HIS AND ASKED HER TO BRING IN HIS PERCOCET FROM HOME. CALL MADE TO BUT NO ANSWER, LEFT MESSAGE TO RETURN CALL. DISCUSSED WITH PT IMPORTANCE NOT TO PERCOCET FROM HOME DUE TO DOUBLE DOSING. INFORMED PT THAT INDUSTRIAL SEAMSTRESS WILL MEDICATE PT WITH PERCOCET. PT STATES HE WILL RETURN CALL TO AND INFORM HER NOT TO BRING PERCOCET IN. CALL LIGHT IN REACH,CONTINUE TO MONITOR.
--- NOTE | 2019-05-04 09:49 | NUR ---
DR. CONTRERAS CALLED AND ASKED FOR THE NAME OF THE NURSE WHO HAS THIS PT. AND STATED HE HAS A PATIENT IN THE OFFICE ON MONDAY AND WILL SEE THE PATIENT THEN. BUT WILL CALL BACK AND GIVE THE NURSE ORDERS. HE CALLED AT HIS NUMBER [phone].
--- NOTE | 2019-05-04 10:00 | NUR ---
CALL RECEIVED FROM INFECTION CONTROL, NEW ORDERS RECIEVED.
--- NOTE | 2019-05-04 13:45 | NUR ---
PT SITTING IN BED WATCHING TV. NO DISTRESS NOTED. NO NEEDS AT THIS TIME. CALL LIGHT IN REACH. CONTINUE TO MONITOR.
[2019-05-04 14:45] VITALS: BP 119/57
--- NOTE | 2019-05-04 14:51 | NUR ---
DR CARVALHO AND FAIZA BURNETT AT BEDSIDE
--- NOTE | 2019-05-04 16:27 | NUR ---
PT SITTING IN BED WITH AT BEDSIDE. NO PAIN OR DISTRESS. NO NEEDS AT THIS TIME. CALL LIGHT IN REACH. CONTINUE TO MONITOR.
[2019-05-04 19:25] VITALS: BP 128/59
--- NOTE | 2019-05-04 20:20 | NUR ---
PATIENT A/O, NO S/S RESP DISTRESS, PATIENT ON ROOM AIR, PATIENT C/O OF 6/10 NECK PAIN, PATIENT REFUSED MORPHINE SULFATE ER PATIENT REQUESTED PRN PERCOCET, WILL CONTINUE TO MONITOR PATIENT HOURLY ROUNDING, CALL LIGHT WITHIN REACH
[2019-05-05 03:53] VITALS: BP 135/61
[2019-05-05 05:18] LABS: HEMOGLOBIN 8.2 g/dl (14.0-18.0); IMMATURE GRANULOCYTES 0.6 % (0.0-5.0); MEAN CORPUSCULAR HGB 31.9 pG CALC (26.0-32.0); MEAN CORPUSCULAR HGB CONC 32.8 g/L CALC (32.0-36.0); NEUT# 3.36 thou/uL (1.82-7.42); RED BLOOD COUNT 2.57 mill/uL (4.70-6.10)
[2019-05-05 05:42] LABS: MEAN CELL VOLUME 97.3 fL CALC (80.0-100.0)
[2019-05-05 05:50] LABS: ANION GAP 9 (6-22 (CALC)); BUN 10 mg/dL (8-23); BUN/CREATININE RATIO 14 (12-20 (CALC)); CARBON DIOXIDE 24 mmol/l (22-30); CHLORIDE 102 mmol/l (95-108); CREATININE 0.7 mg/dL (0.7-1.3); GFR > 60 ML/MIN (>=60 (CALC)); GFR FOR AFR.AMER. > 60 ML/MIN (>=60 (CALC)); POTASSIUM 3.2 mmol/l (3.5-5.1); SODIUM 132 mmol/l (137-146)
--- NOTE | 2019-05-05 07:30 | NUR ---
PATIENT LYING IN BED. ASSESMENT COMPLETED, CALL LEYVA W/I REACH, BED IN LOWEST POSITION, WHEELS LOCKED, SIDE RAILS UP, NEEDS MET.
[2019-05-05 07:37] VITALS: BP 120/45
--- NOTE | 2019-05-05 09:15 | NUR ---
PATIENT CLEANED UP BY FOREST RANGER, ASSISTED X 2 TO BEDSIDE CHAIR, ASKED FOR PAIN MEDICATION.
--- NOTE | 2019-05-05 11:21 | NUR ---
BLOOD CULTURE RESULTS CALLED TO HORTENCIA AGUIRRE, GRAM (-) KEITH IN 1/4 VIALS, PATIENT IS ON MEROPENEM NO NEW ORDERS. PHARMACY WILL FOLLOW FOR FINAL C+S
--- NOTE | 2019-05-05 12:46 | NUR ---
PATIENT REMAINS COMFORTABLE IN BEDSIDE CHAIR. SPOUSE VISITING, HUNG IVF, CALL LIGHT WITHIN REACH, NO DISTRESS, NEEDS MEDT.
--- NOTE | 2019-05-05 15:29 | NUR ---
PATIENT WAS ASSISTED BACK TO BED X2 DIVERSITY MANAGER'S. PATIENT HAD TEMP OF 99.6 AND 101 ON RECENT VITALS TAKEN AND WAS GIVEN A PERCOCET FOR PAIN AND TEMP. PATIENT SIDE RAILS UP, BED IN LOWEST POSITION, SPOUSE BEDSIDE AND CALL LEYVA WITHIN REACH, ALL NEEDS MET.
[2019-05-05 15:31] VITALS: BP 133/75
[2019-05-05 18:50] VITALS: BP 124/59
--- NOTE | 2019-05-05 19:45 | NUR ---
PATIENT A/O, NO S/S RESP DISTRESS PATIENT ON ROOM AIR, PATIENT C/O PAIN 7 OUT OF 10 PAIN IN THE LOWER BACK, TREATED PATIENT PAIN PER MD PRN PAIN ORDERS, WILL REASSESS PATIENT PAIN, WILL CONTINUE TO MONITOR PATIENT HOURLY ROUNDING, CALL LIGHT WITHIN REACH
[2019-05-06 03:50] VITALS: BP 156/76
[2019-05-06 05:25] LABS: HEMATOCRIT 28.7 % (39.0-50.0); HEMOGLOBIN 9.4 g/dl (14.0-18.0); IMMATURE GRANULOCYTES 0.4 % (0.0-5.0); MEAN CELL VOLUME 98.3 fL CALC (80.0-100.0); MEAN CORPUSCULAR HGB 32.2 pG CALC (26.0-32.0); MEAN CORPUSCULAR HGB CONC 32.8 g/L CALC (32.0-36.0); NEUT# 2.76 thou/uL (1.82-7.42); RED BLOOD COUNT 2.92 mill/uL (4.70-6.10)
[2019-05-06 05:38] LABS: ANION GAP 11 (6-22 (CALC)); BUN 7 mg/dL (8-23); BUN/CREATININE RATIO 11 (12-20 (CALC)); CARBON DIOXIDE 23 mmol/l (22-30); CHLORIDE 104 mmol/l (95-108); CREATININE 0.6 mg/dL (0.7-1.3); GFR > 60 ML/MIN (>=60 (CALC)); GFR FOR AFR.AMER. > 60 ML/MIN (>=60 (CALC)); MAGNESIUM 1.6 mg/dL (1.6-2.3); POTASSIUM 3.4 mmol/l (3.5-5.1); SODIUM 135 mmol/l (137-146)
[2019-05-06 08:08] VITALS: BP 145/74
--- NOTE | 2019-05-06 11:16 | NUR ---
DR. CURIEL AND HORTENCIA AGUIRRE TO SEE PT; PLAN OF CARE DISCUSSED; WILL CONTINUE TO MONITOR.
--- NOTE | 2019-05-06 14:46 | NUR ---
PT TO CT VIA WC ACCOMPANIED BY VOLUNTEER
[2019-05-06 15:28] LABS: TSH, 3RD GENERATION 2.46 uIU/mL (0.47 - 4.68)
[2019-05-06 16:15] VITALS: BP 145/74
--- NOTE | 2019-05-06 16:22 | NUR ---
The patient is seen for re- exam today. He tells me he has not been running a fever and feels stronger. His Am Pac score has risen to 14 and he would do well to go home with home health for further strengthening. Treatment today consisted of the following: Bed mobility - which he perfromed at a slow pace but with cga of 1. Transfers- sit to stand and back with SBA of 1. Gait- he ambulates with a stooped posture due to long standing LBP. He is able to ambulate at the in room level with SBA of 1. He ambulated about 20 feet limited by LBP. Assessment- the patient is improving nicely. I mentioned that he would do well with SNF but if he did not agree, he would do well with home health PT and nursing.
[2019-05-06 18:27] LABS: URINE BILIRUBIN - DIPSTICK NEGATIVE (NEGATIVE); URINE CLARITY CLEAR; URINE COLOR YELLOW; URINE GLUCOSE - DIPSTICK NEGATIVE (NEGATIVE); URINE KETONE NEGATIVE (NEGATIVE); URINE LEUK ESTERASE NEGATIVE (Negative); URINE NITRITE - DIPSTICK NEGATIVE (Negative); URINE PROTEIN - DIPSTICK NEGATIVE (NEG-TRACE); URINE SPECIFIC GRAVITY <=1.005; URINE UROBILINOGEN - DIPSTICK 0.2 E.U./dL (0.2)
[2019-05-06 18:28] LABS: URINE BLOOD DIPSTICK TRACE (NEGATIVE)
[2019-05-06 19:18] VITALS: BP 123/59
--- NOTE | 2019-05-06 23:11 | NUR ---
PATIENT A/O, NO S/S RESP DISTRESS, PATIENT C/O 5/10 NECK PAIN, PATIENT WILL BE TREATED FOR PAIN PER MD ORDERS, WILL CONTINUE TO MONITOR PATIENT HOURLY ROUNDING, CALL LIGHT WITH REACH
--- NOTE | 2019-05-07 | NUR ---
PATIENT RESTING, NO S/S RESP DISTRESS, SCHEDULE PAIN MEDICATION EFFECTIVE, PATIENT NO S/S OF PAIN, WILL CONTINUE TO MONITOR PATIENT HOURLY ROUNDING, CALL LIGHT WITHIN REACH
--- NOTE | 2019-05-07 04:30 | NUR ---
PATIENT A/O, NO S/S RESP DISTRESS, PATIENT C/O LOWER BACK PAIN TREATED PATIENT PAIN WITH PRN MED, WILL CONTINUE TO MONITOR PATIENT HOURLY ROUNDING, CALL LIGHT WITHIN REACH
[2019-05-07 04:45] VITALS: BP 137/63
[2019-05-07 05:29] LABS: HEMATOCRIT 25.1 % (39.0-50.0); HEMOGLOBIN 8.3 g/dl (14.0-18.0); IMMATURE GRANULOCYTES 0.4 % (0.0-5.0); MEAN CORPUSCULAR HGB 32.4 pG CALC (26.0-32.0); MEAN CORPUSCULAR HGB CONC 33.1 g/L CALC (32.0-36.0); NEUT# 1.6 thou/uL (1.82-7.42); RED BLOOD COUNT 2.56 mill/uL (4.70-6.10); RED CELL DISTRI WIDTH 14.1 % (11.5-15.5)
[2019-05-07 05:51] LABS: ANION GAP 8 (6-22 (CALC)); BUN 8 mg/dL (8-23); BUN/CREATININE RATIO 12 (12-20 (CALC)); CARBON DIOXIDE 25 mmol/l (22-30); CHLORIDE 106 mmol/l (95-108); CREATININE 0.6 mg/dL (0.7-1.3); GFR > 60 ML/MIN (>=60 (CALC)); GFR FOR AFR.AMER. > 60 ML/MIN (>=60 (CALC)); MAGNESIUM 1.5 mg/dL (1.6-2.3); SODIUM 135 mmol/l (137-146)
[2019-05-07 06:01] LABS: POTASSIUM 4.1 mmol/l (3.5-5.1)
[2019-05-07 07:55] VITALS: BP 135/70
--- NOTE | 2019-05-07 08:00 | NUR ---
PT SEEN ALERT, ORIENTED X 3. LUNGS CLEAR BUT DIMINISHED, RA. BM TODAY. RAMIREZ CATHETER IN PLACE. NO COMPLAINTS, NO DISTRESS.
--- NOTE | 2019-05-07 12:00 | NUR ---
PT REMAINS OOB IN CHAIR AT BEDSIDE, NO EVIDENCE OF DISTRESS. IS NOW AT BEDSIDE. CHRONIC PAIN CONTROLLED BY MEDS/
--- NOTE | 2019-05-07 12:43 | NUR ---
PT WAS SEEN WITH SPOUSE IN THE ROOM WITH HIM. DECLINED TO PARTICIPATE WITH THERAPY, STATES HE WAS GOING HOME TODAY W/ PHYS. THERAPY. HE WAS INSTRUCTED ON HOME EXERCISE PROGRAM THAT FOCUSES ON LE STRENGTHENING. ALSO PROVIDED A HANDOUT WITH PICTURES, DESCRIPTIONS AND EXERCISE DOSAGE.
--- NOTE | 2019-05-07 16:00 | NUR ---
PT PROVIDED MEDS NEEDED FOR PAIN. NO ACUTE DISTRESS NOTED. LFA ABRASION NOW WITH NEOSPORIN APPLIED, BANDAID COVERING. PT UPDATED ON LAB RESULTS.
[2019-05-07 16:20] VITALS: BP 111/58
[2019-05-07 19:53] VITALS: BP 145/77
--- NOTE | 2019-05-07 20:15 | NUR ---
ELECTRIC MOTOR FITTER'S X2 ARE AT BEDSIDE. IS AT BEDSIDE. PT IN LOW FOWLERS POSITION IN BED W/LIGHTS AND TV ON. PT DENIES ANY NEEDS AT THIS TIME. NO S/O DISTRESS NOTED. PT ENCOURAGED TO CALL NEEDS ARISE.
--- NOTE | 2019-05-07 21:30 | NUR ---
PT MEDICATED ORDERS PROVIDE FOR PAIN AND PM MEDICATIONS. PT DENIES ANY OTHER NEEDS AT THIS TIME. CALL LIGHT W/IN REACH.
--- NOTE | 2019-05-08 03:20 | NUR ---
PT CALLED TO REPORT HE WAS WOKEN UP BY A SOUND AND REALIZED HE NEEDED HIS PAIN MEDICATION. PT MEDICATED FOR PAIN REPORTED 8/10 ON PAIN SCALE FOR BACK/NECK PAIN. PO FLUIDS REPLENISHED AT THIS TIME. RAMIREZ CATHETER EMPTIED OF 1900CC OF CLEAR YELLOW URINE.PT DENIES ANY OTHER NEEDS. NO S/O DISTRESS NOTED. CALL LIGHT W/IN REACH AND PT ENCOURAGED TO CALL.
[2019-05-08 03:30] VITALS: BP 165/74
[2019-05-08 04:25] VITALS: BP 140/68
--- NOTE | 2019-05-08 04:40 | NUR ---
PT MEDICATED FOR ANXIETY, REPORTS PAIN PILL NOT WORKING VERY WELL, HE REPORTS HE "TAKES MUCH MORE THAN THAT AT HOME."
[2019-05-08 06:00] LABS: HEMATOCRIT 29.4 % (39.0-50.0); HEMOGLOBIN 9.3 g/dl (14.0-18.0); IMMATURE GRANULOCYTES 0.4 % (0.0-5.0); MEAN CORPUSCULAR HGB 31.3 pG CALC (26.0-32.0); MEAN CORPUSCULAR HGB CONC 31.6 g/L CALC (32.0-36.0); NEUT# 1.96 thou/uL (1.82-7.42); RED BLOOD COUNT 2.97 mill/uL (4.70-6.10); RED CELL DISTRI WIDTH 14.2 % (11.5-15.5)
[2019-05-08 06:16] LABS: BUN 7 mg/dL (8-23); BUN/CREATININE RATIO 12 (12-20 (CALC)); CARBON DIOXIDE 23 mmol/l (22-30); CHLORIDE 107 mmol/l (95-108); CREATININE 0.6 mg/dL (0.7-1.3); GFR > 60 ML/MIN (>=60 (CALC)); GFR FOR AFR.AMER. > 60 ML/MIN (>=60 (CALC)); SODIUM 136 mmol/l (137-146)
[2019-05-08 06:18] LABS: ANION GAP 11 (6-22 (CALC)); POTASSIUM 4.5 mmol/l (3.5-5.1)
[2019-05-08 08:00] VITALS: BP 130/61
--- NOTE | 2019-05-08 08:00 | NUR ---
PT AWAKE, ALERT, ORIENTED X 3. NO COMPLAINTS ISSUED PER BACK PAIN, NO SIGN OF DISTRESS. BLE 2+, IMPROVED FROM YESTERDAY. AFEBRILE.
--- NOTE | 2019-05-08 12:00 | NUR ---
PT PROVIDED MEDS NEEDED FOR PAIN AND ANXIETY. NO ACUTE DISTRESS NOTED, PT RESTS IN THE BED.
--- NOTE | 2019-05-08 12:26 | NUR ---
Patient is not discharging at this time. He tells me he has to have more antibiotics before going home Am pac score is unchanged. He would do well with home health PT
--- NOTE | 2019-05-08 14:42 | NUR ---
PT AT REST IN THE BED, NO DISTRESS NOTED. PT RECEIVES ABX AT THIS TIME. LATEST LAB RESULTS REVIEWED WITH PT AND HIS .
[2019-05-08 15:55] VITALS: BP 138/72
[2019-05-08 18:39] VITALS: BP 139/79
--- NOTE | 2019-05-08 21:23 | NUR ---
PT MEDICATED FOR PAIN, DRESSING TO SKIN TEAR TO LFA CHANGED AND ANTIBIOTIC OINTMENT APPLIED. DENIES ANY OTHER NEEDS AT THIS TIME. AT BEDSIDE.
--- NOTE | 2019-05-08 23:18 | NUR ---
PT APPEARS TO BE SLEEPING IN LOW FOWLERS POSITION IN BED. LIGHTS ARE OUT, TV ON. NO S/O DISTRESS NOTED.
--- NOTE | 2019-05-09 02:23 | NUR ---
PT SLEEPING AT THIS TIME AND DID NOT WAKE TO MY ENTERING ROOM. LIGHTS ARE OFF AND TV ON.
[2019-05-09 04:04] VITALS: BP 154/85
--- NOTE | 2019-05-09 04:12 | NUR ---
PT MEDICATED FOR ANXIETY/REQUEST. NO S/O DISTRESS. AIDE IS IN W/PT AND PT IS TALKATIVE AND REPORTS HAVING SLEPT WELL. DENIES ANY OTHER NEEDS. TV ON, LIGHTS ARE OFF, PT ENCOURAGED TO CALL NEEDS ARISE.
[2019-05-09 05:21] LABS: HEMATOCRIT 27.1 % (39.0-50.0); HEMOGLOBIN 8.7 g/dl (14.0-18.0); MEAN CELL VOLUME 99.3 fL CALC (80.0-100.0); MEAN CORPUSCULAR HGB 31.9 pG CALC (26.0-32.0); MEAN CORPUSCULAR HGB CONC 32.1 g/L CALC (32.0-36.0); RED BLOOD COUNT 2.73 mill/uL (4.70-6.10); RED CELL DISTRI WIDTH 14.1 % (11.5-15.5)
[2019-05-09 05:36] LABS: ANION GAP 8 (6-22 (CALC)); BUN 8 mg/dL (8-23); BUN/CREATININE RATIO 13 (12-20 (CALC)); CARBON DIOXIDE 24 mmol/l (22-30); CHLORIDE 108 mmol/l (95-108); CREATININE 0.6 mg/dL (0.7-1.3); GFR > 60 ML/MIN (>=60 (CALC)); GFR FOR AFR.AMER. > 60 ML/MIN (>=60 (CALC)); POTASSIUM 4.4 mmol/l (3.5-5.1); SODIUM 136 mmol/l (137-146)
[2019-05-09 07:46] VITALS: BP 151/68
--- NOTE | 2019-05-09 07:46 | NUR ---
PT SITTING IN BED. A&O X3. NO DISTRESS NOTED. PT C/O PAIN IN HIS HEAD. RAMIREZ CATHETER IN PLACE DRAINING VIA GRAVITY. CLEAR YELLOW URINE INSPECTED. NO OTHER NEEDS AT THIS TIME. ASSESSMENT COMPLETED. DISCUSSED POC. CALL LIGHT IN REACH. CONTINUE TO MONITOR.
[2019-05-09 08:56] VITALS: BP 151/68
--- NOTE | 2019-05-09 11:02 | NUR ---
[facility] SCORE TODAY: UNCHANGED. HE WILL BENEFIT FROM IN-PT REHAB, HOWEVER, HE WAS ADAMANT ON BEING DISCHARGED HOME WITH PHYSICAL THERAPY. PT WAS SEEN TODAY FOR FUNCTIONAL ACTIVITY. HE WAS GIVEN MOD A TO SIT FROM [place]; MOD A TO SCOOT FORWARD ON EOB PRIOR TO STANDING. HE USED B UE TO PUSH SELF UP TO ASSUME STANDING POSITION. HE TOLERATED STANDING FOR ~2 MINS. WHILE NURSE CLEANED HIM UP. THEN, HE PIVOT TRANSFERRED FROM BED TO RECLINER ON THE SIDE OF BED WITH CGA. PT SHOWED SEVERE BALANCE IMPAIRMENT AND WEAKNESS OF B LE WITH UNCONTROLLED DESCENT HE SAT DOWN IN THE RECLINER.
--- NOTE | 2019-05-09 12:00 | NUR ---
PT SITTING IN BED WATCHING TV. NO NEEDS AT THIS TIME. CALL LIGHT IN REACH CONTINUE TO MONITOR.
[2019-05-09] MEDS ORDERED: OMNICEF300 MG PO (13:52)
--- NOTE | 2019-05-09 14:01 | NUR ---
IV ROCEPHIN INITIATED. CONTINUE TO MONITOR.
--- NOTE | 2019-05-09 14:42 | NUR ---
IV LASIX GIVEN. PT TOLERATED WELL. CONTINUE TO MONITOR PER MAGDA 3 HRS AFTER AND REMOVE RAMIREZ CATH. PT TO BE D/C HOME WITH HOME HEALTH
--- NOTE | 2019-05-09 17:31 | NUR ---
DISCUSSED D/C INSTRUCTIONS WITH PT AND . IV REMOVED, INTACT UPON REMOVAL.RAMIREZ CATHETER REMOVED WITH NO COMPLICATIONS. PT TOLERATED WELL.
--- NOTE | 2019-05-09 18:14 | NUR ---
Discharge instructions given. Patient verbalizes understanding of same. Discharged in stable condition via Wheelchair to Home with spouse. All belongings sent with pt.
[2019-05-20] MEDS ORDERED: SPIRONOLACT25 MG PO (11:50)
== END 2019-05-09 18:10 | DRG 698 ==
LOC: ED 02:06 → ED-I 05:11 → ED 06:11 → MS2 06:12
PROVIDERS: Emergency Medicine; Internal Medicine Infectious Disease; Nurse Practitioner Family; ADMIT Internal Medicine; ATTEND Internal Medicine
PROC: 0T9B70Z Drainage of Bladder with Drainage Device, Via Natural or Artificial Opening (ICD-10-PCS; principal; 2019-05-03)
DX: T83.518A Infection and inflammatory reaction due to other urinary catheter, initial encounter (principal); A41.59 Other Gram-negative sepsis; R65.21 Severe sepsis with septic shock; G93.41 Metabolic encephalopathy; N39.0 Urinary tract infection, site not specified; G93.40 Encephalopathy, unspecified; I10 Essential (primary) hypertension; I25.10 Atherosclerotic heart disease of native coronary artery without angina pectoris; I95.9 Hypotension, unspecified; N40.1 Benign prostatic hyperplasia with lower urinary tract symptoms; R33.8 Other retention of urine; G89.4 Chronic pain syndrome; G47.00 Insomnia, unspecified; E78.5 Hyperlipidemia, unspecified; K21.9 Gastro-esophageal reflux disease without esophagitis; E03.9 Hypothyroidism, unspecified; M47.9 Spondylosis, unspecified; K59.03 Drug induced constipation; T40.605A Adverse effect of unspecified narcotics, initial encounter; E66.9 Obesity, unspecified; M62.81 Muscle weakness (generalized); F41.9 Anxiety disorder, unspecified; B96.20 Unspecified Escherichia coli [E. coli] as the cause of diseases classified elsewhere; Y84.6 Urinary catheterization as the cause of abnormal reaction of the patient, or of later complication, without mention of misadventure at the time of the procedure; Z68.33 Body mass index [BMI] 33.0-33.9, adult; Z74.01 Bed confinement status; Z86.79 Personal history of other diseases of the circulatory system; Z87.440 Personal history of urinary (tract) infections; Z95.1 Presence of aortocoronary bypass graft
CPT/HCPCS: G0378; J3475

== ENCOUNTER 2019-09-22 19:11 | Observation (INO) | payer MEDICARE ==
[~2019-09-22] VITALS: Ht 160 cm; Wt 102.5 kg
[~2019-09-22 19:11] MED LIST changes: +OMNICEF300 MG PO; +SPIRONOLACT25 MG PO
--- NOTE | 2019-09-22 19:33 | NUR ---
PT TO ROOM FOR EXAM PER W/C
--- NOTE | 2019-09-22 20:12 | NUR ---
COVID AND FLU SWABS OBTAINED. IV ATTMEPTS X 4 THUS FAR BY SHAKA AND MYSELF. SHAKA GOT SOME BLOOD...OMAR NOW ATTEMPTING.
--- NOTE | 2019-09-22 20:48 | NUR ---
IV STARTED AND LABS DRAWN. CULTURES SENT.
[2019-09-22 20:55] LABS: HEMOGLOBIN 9.8 g/dl (14.0-18.0); IMMATURE GRANULOCYTES 0.5 % (0.0-5.0); MEAN CELL VOLUME 97.4 fL CALC (80.0-100.0); MEAN CORPUSCULAR HGB 31.8 pG CALC (26.0-32.0); MEAN CORPUSCULAR HGB CONC 32.7 g/dL CAL (32.0-36.0); NEUT# 6.75 thou/uL (1.82-7.42); RED BLOOD COUNT 3.08 mill/uL (4.70-6.10); RED CELL DISTRI WIDTH 14.8 % (11.5-15.5)
[2019-09-22 20:56] LABS: URINE BILIRUBIN - DIPSTICK NEGATIVE (NEGATIVE); URINE BLOOD DIPSTICK TRACE-INTACT (NEGATIVE); URINE COLOR YELLOW; URINE GLUCOSE - DIPSTICK NEGATIVE (NEGATIVE); URINE KETONE NEGATIVE (NEGATIVE); URINE PH 6.5 (4.5-8.0); URINE PROTEIN - DIPSTICK NEGATIVE (NEG-TRACE); URINE UROBILINOGEN - DIPSTICK 0.2 E.U./dL (0.2)
[2019-09-22 21:05] LABS: ALBUMIN 4.3 g/dL (3.2-5.0); ALKALINE PHOSPHATASE 86 u/l (38-126); BILIRUBIN, TOTAL 0.5 mg/dL (0.0-1.4); BUN 12 mg/dL (8-23); BUN/CREATININE RATIO 11 (12-20 (CALC)); CREATININE 1.1 mg/dL (0.7-1.3); GFR > 60 ML/MIN (>=60 (CALC)); GFR FOR AFR.AMER. > 60 ML/MIN (>=60 (CALC)); POTASSIUM 3.9 mmol/l (3.5-5.1); SGOT/AST 22 u/l (19-48); SODIUM 132 mmol/l (137-146); TOTAL PROTEIN 7.8 g/dL (6.3-8.2)
[2019-09-22 21:10] LABS: ANION GAP 9 (6-22 (CALC)); CARBON DIOXIDE 34 mmol/l (22-30); CHLORIDE 93 mmol/l (95-108)
[2019-09-22 21:12] LABS: URINE LEUK ESTERASE SMALL (NEGATIVE); URINE NITRITE - DIPSTICK POSITIVE (Negative)
--- NOTE | 2019-09-22 21:20 | NUR ---
DR NOTIFIED OF FEVER. CATH KIT GIVEN
--- NOTE | 2019-09-22 21:30 | NUR ---
PT INCONT OF URINE...APPARENTLY IS ABLE TO VOID BUT THE UROLOGIST INSTRUCTED HIME TO CATH 4 TIMES A DAY. WASN'T ABLE TO CATH HIM THIS TIME.
[2019-09-22 21:33] LABS: URINE BACTERIA MANY hpf; URINE SQUAMOUS EPITHELIAL CELL FEW EPI/hpf (0-FEW)
--- NOTE | 2019-09-22 22:25 | NUR ---
PT WANTED CATHED AGAIN. BECAUSE WE ARE HANGING FLUIDS AND PT IS FREQUENTLY NEEDING CATHED/RAMIREZ INSERTED.
--- NOTE | 2019-09-22 23:44 | NUR ---
ATTEMPTED TO CALL REPORT. NURSE WILL CALL BACK
--- NOTE | 2019-09-22 23:59 | NUR ---
REPORT TO SADA, MED-SURG
[2019-09-23] MEDS ORDERED: OXYCOD-APAP1 TA1 PO (00:23)
[2019-09-23] MEDS ORDERED: ALDACTAZIDE PO (00:27)
--- NOTE | 2019-09-23 00:42 | NUR ---
PT. ARRIVED TO THE FLOOR VIA STRETCHER ACCOMPANIED BY ER NURSE, JUNAID BUCKNER. PT. ABLE TO ASSIST WITH TRANSFER INTO BED.PT. ORIENTED TO ROOM, POC, AND CALL LIGHT. PT. IS REALLY CONCERNED ABOUT GETTING HIS NIGHT TIME MEDS. PT. IS RE-ASSURED THAT THIS SAMPLE WORKER WILL CALL ER PHYSICIAN IN REGARDS FOR MED ORDERS SOON ADMISSION IS COMPLETED. RAMIREZ CATHETER IS IN PLACE AND DRAINING AT GRAVITY LEVEL. IV SITE TO RAC INTACT AND INFUSING ORDERED NS @125MLS/HR. NO DISTRESS NOTED. PT. IS VERY TALKATIVE AND LAUGHING INTERMITTENTLY AND EXPRESSESS HE IS HAVING GENERALIZED PAIN. REPOSITIONED PT. FOR COMFORT. ONLY SYMPTOM PT. REPORTS FROM HOME IS A FEVER, NO OTHER SYMPTOMS EXPRESSED. CALL LIGHT IS IN REACH. WILL CONTINUE TO [facility].
--- NOTE | 2019-09-23 00:45 | NUR ---
TO FLOOR VIA STRETCHER. HOME. VSS. PT TRANSFERED TO BED. NAD.
--- NOTE | 2019-09-23 00:45 | NUR ---
PT GAGAN AMBUALTORY. LEORA. NALLELY.
[2019-09-23 01:00] VITALS: BP 135/67
--- NOTE | 2019-09-23 01:17 | NUR ---
SPOKE WITH DR. FIELDS AND NOTIFIED HIM OF WHICH HOME MEDICATIONS PT. IS REQUESTING; NEW ORDERS RECEIVED AND TO BE CARRIED OUT.
--- NOTE | 2019-09-23 03:36 | NUR ---
PT. C/O PAIN AND MEDICATED WITH ORDERED PERCOCET X1 TAB; THIS ASSOCIATE STORE MANAGER ATTEMPTED TO DRAW AM LABS MULTIPLE ATTEMPTS AND UNSUCCESSFUL AT THIS TIME.
--- NOTE | 2019-09-23 04:50 | NUR ---
PT. CONSISTENTLY ON THE LIGHT FOR VAGUE THINGS AND NEEDS MET EACH TIME. CALL LIGHT IS IN REACH. WILL CONTINUE TO MONITOR.
[2019-09-23 05:19] VITALS: BP 119/61
[2019-09-23 06:03] LABS: HEMATOCRIT 28.1 % (39.0-50.0); HEMOGLOBIN 9.5 g/dl (14.0-18.0); IMMATURE GRANULOCYTES 0.6 % (0.0-5.0); MEAN CELL VOLUME 97.2 fL CALC (80.0-100.0); MEAN CORPUSCULAR HGB 32.9 pG CALC (26.0-32.0); MEAN CORPUSCULAR HGB CONC 33.8 g/dL CAL (32.0-36.0); NEUT# 4.88 thou/uL (1.82-7.42); RED BLOOD COUNT 2.89 mill/uL (4.70-6.10); RED CELL DISTRI WIDTH 14.9 % (11.5-15.5)
[2019-09-23 08:00] VITALS: BP 117/66
--- NOTE | 2019-09-23 08:17 | NUR ---
ASSESSMENT IS COMPLETED: IV SITE IS FREE FROM REDNESS OR EDEMA. HR IS REG,PULSES ARE STRONG X4,ABD IS SOFT WITH ACTIVE BS., BREATH SOUNDS ARE CLEAR,BILATERALLY, RAMIREZ DRAINING YELLOW URINE. TELE MONITOR IN PLACE. CONTINUE TO OSBERVE AND MONITOR.
--- NOTE | 2019-09-23 12:15 | NUR ---
PT IS RELAXING IN BED WITH NO DISTRESS NOTED. IV SITE IS FREE FROM REDNESS OR EDEMA. CONTINUE TO OSBERVE AND MONITOR.
--- NOTE | 2019-09-23 15:30 | NUR ---
PT IS ASKING FOR THE NIGHT TIME MEDICATION. EXPLAINED IT WAS ONLY 1500 AND UNABLE TO GIVE SLEEPING MEDICATIONS. PT STATES" I AM CONFUSED".
[2019-09-23 16:15] VITALS: BP 121/64
--- NOTE | 2019-09-23 16:15 | NUR ---
PT IS RELAXING IN BED WITH NO DISTRESS NOTED. IV SITE IS FREE FROM REDNESS OR EDEMA.
[2019-09-23 18:40] VITALS: BP 134/61
--- NOTE | 2019-09-23 21:15 | NUR ---
ENTERED ROOM AND ATTEMPTED TO INTRODUCE MYSELF WHEN PT INTERUPTED ME AND SAID, "MY PERCOCET IS DUE, DO YOU HAVE IT? AND WHEN CAN I HAVE MY XANAX?" POC and med schedule discussed at this time with pt and he verbalized understanding. Will follow-up with pain pill as discussed w/pt. Pt is talkative and watching tv. Assessment completed and medications administered as orders provide at this time. No s/o distress noted, pt denies any other needs, but has been encouraged to call as needs arise.
--- NOTE | 2019-09-23 23:22 | NUR ---
MEDICATED PT FOR PAIN PER REQUEST. NO S/O DISTRESS NOTED. PT ASKED TO HAVE HIS TEMP CHECKED, DENIED SYMPTOMS, "JUST WANT TO KEEP AN EYE ON IT." TEMP 98.4
[2019-09-23 23:30] VITALS: BP 126/66
--- NOTE | 2019-09-24 03:19 | NUR ---
PT MEDICATED ORDERS PROVIDE FOR ANXIETY. PT REPORTED HAVING SLEPT 2 HOURS. PT IS ASKING WHEN HE CAN HAVE HIS "NEXT PILL, I CAN'T REMEMBER WHEN I TOOK MY PERCOCET." MED SCHEDULE DISCUSSED W/PT. DISCUSSED CALL LIGHT USAGE W/PT AND CONFIRMED PHONE W/IN REACH AND DISCUSSED ITS USAGE WITH PT. V/S ASSESSED. DENIES ANY OTHER NEEDS.
--- NOTE | 2019-09-24 03:36 | NUR ---
PT MEDICATED FOR PAIN REPORTED 11/14. PT IS UP WATCHING TV AND ASKING ME ABOUT WHERE I LIVE, ETC. VERY TALKATIVE. NO S/O DISTRESS.
[2019-09-24 03:56] VITALS: BP 125/62
--- NOTE | 2019-09-24 06:40 | NUR ---
PT CALLED 3 TIMES WHILE I WAS IN ANOTHER ROOM. PT REFUSED TO TELL AIDES WHAT WAS NEEDED STATING HE "JUST NEEDS TO TALK TO MY NURSE." UPON ARRIVING TO PT ROOM, HE ASKED FOR HIS "PILL THAT IS DUE." UPON ASKING FOR CLARIFICATION PT REPORTED THAT HE WANTS HIS PERCOCET. PT WAS INFORMED THAT IT IS NOT AVAILABLE FOR ANOTHER HOUR. PT HAS BEEN CALLING ALL NIGHT ASKING FOR THE NEXT PILL "DUE."
--- NOTE | 2019-09-24 07:00 | NUR ---
SHIFT CHANGE REPORT, PT AWAKE ALERT, ORIENTED AND CONVERSATIONAL, C/O GENERALISED PAIN @ 8/10 AND REQUESTING ADDITIONAL ANALGESIC IN ADDITION TO HIS SCHEDULED ONES, RAMIREZ CATHETER IN PLACE WITH CLEAR YELLOW URINE, CALL LEYVA IN REACH, WILL ADDRESSED NEEDS AND CONTINUE TO MONITOR.
[2019-09-24 09:14] VITALS: BP 117/57
[2019-09-24 09:18] VITALS: BP 117/57
[2019-09-24] MEDS ORDERED: CIPROFLOXACN500 MG PO (10:20)
--- NOTE | 2019-09-24 13:36 | NUR ---
Discharge instructions given. Patient verbalizes understanding of same. Discharged in stable condition via Wheelchair to Home with family. All belongings sent with pt. PT LEFT [facility]ERY W/C WITH FACE MASK IN PLACE.
--- NOTE | 2019-09-25 10:45 | NUR ---
Notified patient of 09/22/2019 Covid results ( Negative.) [facility] in home now.
== END 2019-09-24 13:35 | disposition home health service (06) ==
LOC: ED 19:11 → ED-I 23:11 → ED 23:25 → MS2 23:26
PROVIDERS: Emergency Medicine; ADMIT Internal Medicine; ATTEND Internal Medicine
PROC: 0T9B70Z Drainage of Bladder with Drainage Device, Via Natural or Artificial Opening (ICD-10-PCS; principal; 2019-09-22)
DX: N39.0 Urinary tract infection, site not specified (principal); I10 Essential (primary) hypertension; I25.10 Atherosclerotic heart disease of native coronary artery without angina pectoris; E78.5 Hyperlipidemia, unspecified; E03.9 Hypothyroidism, unspecified; N40.1 Benign prostatic hyperplasia with lower urinary tract symptoms; R33.8 Other retention of urine; G89.4 Chronic pain syndrome; F41.9 Anxiety disorder, unspecified; B96.1 Klebsiella pneumoniae [K. pneumoniae] as the cause of diseases classified elsewhere; Z86.73 Personal history of transient ischemic attack (TIA), and cerebral infarction without residual deficits; Z87.440 Personal history of urinary (tract) infections; Z95.1 Presence of aortocoronary bypass graft; Z20.828 Contact with and (suspected) exposure to other viral communicable diseases
CPT/HCPCS: G0378; J0131

== ENCOUNTER 2021-06-11 10:49 | Emergency (ER) | payer MEDICARE ==
[~2021-06-11] VITALS: Ht 160 cm; Wt 95.5 kg
[~2021-06-11 10:49] MED LIST changes: +ALDACTAZIDE PO; +OXYCOD-APAP1 TA1 PO
[2021-06-11 12:00] LABS: ALBUMIN 3.8 g/dL (3.2-5.0); CREATININE 1.4 mg/dL (0.7-1.3); POTASSIUM 3.2 mmol/l (3.5-5.1); TOTAL PROTEIN 7.2 g/dL (6.3-8.2)
[2021-06-11 12:01] LABS: BILIRUBIN, TOTAL 0.6 mg/dL (0.0-1.4)
[2021-06-11 12:29] LABS: HEMATOCRIT 35.6 % (39.0-50.0); HEMOGLOBIN 11.2 g/dl (14.0-18.0); IMMATURE GRANULOCYTES 0.1 % (0.0-5.0); MEAN CELL VOLUME 97.8 fL CALC (80.0-100.0); MEAN CORPUSCULAR HGB 30.8 pG CALC (26.0-32.0); MEAN CORPUSCULAR HGB CONC 31.5 g/dL CAL (32.0-36.0); NEUT# 3.4 thou/uL (1.82-7.42); RED BLOOD COUNT 3.64 mill/uL (4.70-6.10)
[2021-06-11 14:00] VITALS: BP 91/58
== END 2021-06-11 14:00 | disposition home or self-care (01) ==
LOC: ED 10:49 → ED-I 11:44 → ED 11:44
PROVIDERS: Family Medicine
DX: R11.2 Nausea with vomiting, unspecified (principal); R53.1 Weakness; R06.02 Shortness of breath; T46.0X5A Adverse effect of cardiac-stimulant glycosides and drugs of similar action, initial encounter; I11.0 Hypertensive heart disease with heart failure; I50.9 Heart failure, unspecified; I48.91 Unspecified atrial fibrillation; E78.5 Hyperlipidemia, unspecified; Z95.1 Presence of aortocoronary bypass graft; Z95.9 Presence of cardiac and vascular implant and graft, unspecified
CPT/HCPCS: J1162

== ENCOUNTER 2021-08-20 12:11 | Emergency (ER) | payer MEDICARE ==
[2021-08-20] VITALS (8 sets, daily range): BP systolic 104–127; BP diastolic 46–61
[~2021-08-20] VITALS: Ht 160 cm; Wt 90.0 kg
[2021-08-20] MEDS ORDERED: OXYCODO-APAP1 TA2 PO (12:42)
[2021-08-20] MEDS ORDERED: MORPHINE SUL30 M3 PO (12:43)
[2021-08-20] MEDS ORDERED: POTASSIUM CHLO20 ME2 PO (12:45)
[2021-08-20] MEDS ORDERED: ELIQUIS5 MG PO (12:46)
[2021-08-20] MEDS ORDERED: FERROUS SULF325 M3 PO (12:46)
[2021-08-20] MEDS ORDERED: DIGOXIN0.125 MG PO (12:47)
[2021-08-20] MEDS ORDERED: METHOCARBAMOL500 MG PO (14:29)
[2021-08-20] MEDS ORDERED: PREDNISONE20 MG PO (14:29)
== END 2021-08-20 14:50 | disposition home or self-care (01) ==
LOC: ED 12:11
PROC: 3E1B78Z Irrigation of Ear using Irrigating Substance, Via Natural or Artificial Opening (ICD-10-PCS; principal; 2021-08-20)
PROC: 3E1B78Z Irrigation of Ear using Irrigating Substance, Via Natural or Artificial Opening (ICD-10-PCS; 2021-08-20)
DX: M51.16 Intervertebral disc disorders with radiculopathy, lumbar region (principal); G89.4 Chronic pain syndrome; H61.23 Impacted cerumen, bilateral; I10 Essential (primary) hypertension; I48.91 Unspecified atrial fibrillation; I25.10 Atherosclerotic heart disease of native coronary artery without angina pectoris; E78.5 Hyperlipidemia, unspecified; Z95.1 Presence of aortocoronary bypass graft; Z95.9 Presence of cardiac and vascular implant and graft, unspecified

== ENCOUNTER 2021-10-01 09:20 | Emergency (ER) | payer MEDICARE ==
[~2021-10-01] VITALS: Ht 160 cm; Wt 90.0 kg
[~2021-10-01 09:20] MED LIST changes: +DIGOXIN0.125 MG PO; +ELIQUIS5 MG PO; +FERROUS SULF325 M3 PO; +METHOCARBAMOL500 MG PO; +OXYCODO-APAP1 TA2 PO; +POTASSIUM CHLO20 ME2 PO; +PREDNISONE20 MG PO
[2021-10-01] MEDS ORDERED: PREDNISONE50 MG PO (10:04)
[2021-10-01 10:24] VITALS: BP 120/47
== END 2021-10-01 10:41 | disposition home or self-care (01) ==
LOC: ED 09:20
DX: M54.50 Low back pain, unspecified (principal); G89.29 Other chronic pain; I48.91 Unspecified atrial fibrillation; E03.9 Hypothyroidism, unspecified; I10 Essential (primary) hypertension; E78.5 Hyperlipidemia, unspecified; Z95.1 Presence of aortocoronary bypass graft; Z95.9 Presence of cardiac and vascular implant and graft, unspecified

== ENCOUNTER 2021-10-04 08:10 | Observation (INO) | payer MEDICARE ==
[~2021-10-04] VITALS: Ht 160 cm; Wt 90.0 kg
[~2021-10-04 08:10] MED LIST changes: +PREDNISONE50 MG PO
[2021-10-04 08:41] LABS: URINE BILIRUBIN - DIPSTICK NEGATIVE (NEGATIVE); URINE BLOOD DIPSTICK NEGATIVE (NEGATIVE); URINE COLOR YELLOW; URINE GLUCOSE - DIPSTICK NEGATIVE (NEGATIVE); URINE KETONE NEGATIVE (NEGATIVE); URINE LEUK ESTERASE NEGATIVE (NEGATIVE); URINE PROTEIN - DIPSTICK NEGATIVE (NEG-TRACE); URINE SPECIFIC GRAVITY >=1.030; URINE UROBILINOGEN - DIPSTICK 0.2 E.U./dL (0.2)
[2021-10-04 08:42] LABS: HEMATOCRIT 30.7 % (39.0-50.0); HEMOGLOBIN 9.9 g/dl (14.0-18.0); IMMATURE GRANULOCYTES 0.4 % (0.0-5.0); MEAN CELL VOLUME 92.5 fL CALC (80.0-100.0); MEAN CORPUSCULAR HGB 29.8 pG CALC (26.0-32.0); MEAN CORPUSCULAR HGB CONC 32.2 g/dL CAL (32.0-36.0); NEUT# 13.27 thou/uL (1.82-7.42); RED BLOOD COUNT 3.32 mill/uL (4.70-6.10); RED CELL DISTRI WIDTH 15.8 % (11.5-15.5)
[2021-10-04 08:43] LABS: URINE NITRITE - DIPSTICK NEGATIVE (Negative)
[2021-10-04 08:54] LABS: ALBUMIN 3.5 g/dL (3.2-5.0); ALKALINE PHOSPHATASE 56 u/l (38-126); ANION GAP 15 (6-22 (CALC)); BILIRUBIN, TOTAL 0.1 mg/dL (0.0-1.4); BUN 26 mg/dL (8-23); BUN/CREATININE RATIO 23 (12-20 (CALC)); CARBON DIOXIDE 22 mmol/l (22-30); CHLORIDE 87 mmol/l (95-108); CREATININE 1.1 mg/dL (0.7-1.3); GFR FOR AFR.AMER. > 60 ML/MIN (>=60 (CALC)); GFR OTHER RACES > 60 ML/MIN (>=60 (CALC)); SGOT/AST 21 u/l (19-48); SODIUM 120 mmol/l (137-146); TOTAL PROTEIN 6.6 g/dL (6.3-8.2)
[2021-10-04 11:09] VITALS: BP 92/53
[2021-10-04 14:33] VITALS: BP 117/68
[2021-10-04 15:41] VITALS: BP 117/68
[2021-10-04 19:34] VITALS: BP 94/37
[2021-10-04 19:37] VITALS: BP 103/45
[2021-10-05] VITALS (11 sets, daily range): BP systolic 101–123; BP diastolic 44–62
[2021-10-05 06:32] LABS: ANION GAP 12 (6-22 (CALC)); BUN 25 mg/dL (8-23); BUN/CREATININE RATIO 25 (12-20 (CALC)); CARBON DIOXIDE 22 mmol/l (22-30); CHLORIDE 90 mmol/l (95-108); GFR FOR AFR.AMER. > 60 ML/MIN (>=60 (CALC)); GFR OTHER RACES > 60 ML/MIN (>=60 (CALC)); MAGNESIUM 1.7 mg/dL (1.6-2.3); POTASSIUM 3.7 mmol/l (3.5-5.1); SODIUM 120 mmol/l (137-146)
[2021-10-05 06:51] LABS: MEAN CORPUSCULAR HGB 30.4 pG CALC (26.0-32.0); RED BLOOD COUNT 2.24 mill/uL (4.70-6.10); RED CELL DISTRI WIDTH 15.8 % (11.5-15.5)
[2021-10-05 06:57] LABS: HEMATOCRIT 20.6 % (39.0-50.0); HEMOGLOBIN 6.8 g/dl (14.0-18.0)
[2021-10-05 14:32] LABS: HEMATOCRIT 24.8 % (39.0-50.0); HEMOGLOBIN 8.1 g/dl (14.0-18.0)
[2021-10-06] VITALS (12 sets, daily range): BP systolic 86–136; BP diastolic 26–67
[2021-10-06 05:26] LABS: HEMATOCRIT 24.6 % (39.0-50.0); HEMOGLOBIN 8.2 g/dl (14.0-18.0); IMMATURE GRANULOCYTES 0.7 % (0.0-5.0); MEAN CELL VOLUME 87.5 fL CALC (80.0-100.0); MEAN CORPUSCULAR HGB 29.2 pG CALC (26.0-32.0); MEAN CORPUSCULAR HGB CONC 33.3 g/dL CAL (32.0-36.0); NEUT# 8.63 thou/uL (1.82-7.42); RED BLOOD COUNT 2.81 mill/uL (4.70-6.10); RED CELL DISTRI WIDTH 18.5 % (11.5-15.5)
[2021-10-06 05:51] LABS: ANION GAP 11 (6-22 (CALC)); BUN 23 mg/dL (8-23); BUN/CREATININE RATIO 27 (12-20 (CALC)); CARBON DIOXIDE 23 mmol/l (22-30); CHLORIDE 91 mmol/l (95-108); CREATININE 0.8 mg/dL (0.7-1.3); GFR FOR AFR.AMER. > 60 ML/MIN (>=60 (CALC)); GFR OTHER RACES > 60 ML/MIN (>=60 (CALC)); MAGNESIUM 1.8 mg/dL (1.6-2.3); POTASSIUM 3.2 mmol/l (3.5-5.1); SODIUM 122 mmol/l (137-146)
[2021-10-07 03:33] VITALS: BP 108/40
[2021-10-07 05:24] LABS: HEMATOCRIT 26.3 % (39.0-50.0); HEMOGLOBIN 8.4 g/dl (14.0-18.0); MEAN CELL VOLUME 90.7 fL CALC (80.0-100.0); MEAN CORPUSCULAR HGB CONC 31.9 g/dL CAL (32.0-36.0); NEUT# 6.44 thou/uL (1.82-7.42); RED BLOOD COUNT 2.9 mill/uL (4.70-6.10); RED CELL DISTRI WIDTH 18.7 % (11.5-15.5)
[2021-10-07 05:50] LABS: ALKALINE PHOSPHATASE 43 u/l (38-126); ANION GAP 8 (6-22 (CALC)); BUN 18 mg/dL (8-23); BUN/CREATININE RATIO 21 (12-20 (CALC)); CARBON DIOXIDE 23 mmol/l (22-30); CHLORIDE 99 mmol/l (95-108); CREATININE 0.8 mg/dL (0.7-1.3); GFR FOR AFR.AMER. > 60 ML/MIN (>=60 (CALC)); GFR OTHER RACES > 60 ML/MIN (>=60 (CALC)); MAGNESIUM 1.7 mg/dL (1.6-2.3); POTASSIUM 3.8 mmol/l (3.5-5.1); SGOT/AST 22 u/l (19-48); SODIUM 127 mmol/l (137-146)
[2021-10-07 05:54] LABS: ALBUMIN 2.5 g/dL (3.2-5.0); BILIRUBIN, TOTAL 0.4 mg/dL (0.0-1.4); TOTAL PROTEIN 4.9 g/dL (6.3-8.2)
[2021-10-07 05:59] LABS: IMMATURE GRANULOCYTES 0.6 % (0.0-5.0)
[2021-10-07 06:33] VITALS: BP 115/56
[2021-10-07 08:00] VITALS: BP 115/56
[2021-10-07 10:18] VITALS: BP 118/65
[2021-10-07] MEDS ORDERED: ALPRAZOLAM0.5 MG PO (11:59)
[2021-10-07] MEDS ORDERED: SOD CHLORIDE1 GM PO (11:59)
[2021-10-07] MEDS ORDERED: OXYCODO-APAP1 TA2 PO (11:59)
[2021-10-07] MEDS ORDERED: MORPHINE SULFAT60 M4 PO (11:59)
[2021-10-07] MEDS ORDERED: FUROSEMIDE20 MG PO (11:59)
[2021-10-07 14:15] VITALS: BP 101/51
== END 2021-10-07 15:35 ==
LOC: ED 08:10 → ED-I 09:20 → ED 10:34 → MS2 10:35
PROVIDERS: Family Medicine; Nurse Practitioner; ADMIT Hospitalist; ATTEND Hospitalist
PROC: 30233N1 Transfusion of Nonautologous Red Blood Cells into Peripheral Vein, Percutaneous Approach (ICD-10-PCS; principal; 2021-10-05)
DX: E87.1 Hypo-osmolality and hyponatremia (principal); T50.2X5A Adverse effect of carbonic-anhydrase inhibitors, benzothiadiazides and other diuretics, initial encounter; T50.0X5A Adverse effect of mineralocorticoids and their antagonists, initial encounter; G93.41 Metabolic encephalopathy; D64.9 Anemia, unspecified; I95.9 Hypotension, unspecified; E83.51 Hypocalcemia; R53.1 Weakness; I11.0 Hypertensive heart disease with heart failure; I50.9 Heart failure, unspecified; I48.91 Unspecified atrial fibrillation; E78.5 Hyperlipidemia, unspecified; K59.00 Constipation, unspecified; I25.10 Atherosclerotic heart disease of native coronary artery without angina pectoris; E03.9 Hypothyroidism, unspecified; K21.9 Gastro-esophageal reflux disease without esophagitis; M48.061 Spinal stenosis, lumbar region without neurogenic claudication; M47.819 Spondylosis without myelopathy or radiculopathy, site unspecified; I49.8 Other specified cardiac arrhythmias; T46.0X5A Adverse effect of cardiac-stimulant glycosides and drugs of similar action, initial encounter; F41.9 Anxiety disorder, unspecified; Z79.01 Long term (current) use of anticoagulants; Z95.820 Peripheral vascular angioplasty status with implants and grafts; Z86.73 Personal history of transient ischemic attack (TIA), and cerebral infarction without residual deficits; Z86.79 Personal history of other diseases of the circulatory system; Z95.1 Presence of aortocoronary bypass graft; Z79.52 Long term (current) use of systemic steroids; Z20.822 Contact with and (suspected) exposure to COVID-19
CPT/HCPCS: P9016

== ENCOUNTER 2021-12-21 12:23 | Inpatient (IN) | payer MEDICARE ==
[2021-12-21] VITALS (109 sets, daily range): BP systolic 79–141; BP diastolic 35–110
[~2021-12-21] VITALS: Ht 160 cm; Wt 84.0 kg
[~2021-12-21 12:23] MED LIST changes: +FUROSEMIDE20 MG PO; +MORPHINE SULFAT60 M4 PO; +SOD CHLORIDE1 GM PO
[2021-12-21 13:17] LABS: IMMATURE GRANULOCYTES 0.4 % (0.0-5.0); MEAN CELL VOLUME 100.3 fL CALC (80.0-100.0); MEAN CORPUSCULAR HGB 31.3 pG CALC (26.0-32.0); MEAN CORPUSCULAR HGB CONC 31.2 g/dL CAL (32.0-36.0); NEUT# 13.42 thou/uL (1.82-7.42); RED BLOOD COUNT 3.52 mill/uL (4.70-6.10); RED CELL DISTRI WIDTH 20.7 % (11.5-15.5)
[2021-12-21 13:34] LABS: HEMATOCRIT 35.3 % (39.0-50.0)
[2021-12-21 14:06] LABS: URINE BILIRUBIN - DIPSTICK NEGATIVE (NEGATIVE); URINE BLOOD DIPSTICK TRACE-INTACT (NEGATIVE); URINE COLOR YELLOW; URINE GLUCOSE - DIPSTICK NEGATIVE (NEGATIVE); URINE KETONE NEGATIVE (NEGATIVE); URINE PROTEIN - DIPSTICK NEGATIVE (NEG-TRACE); URINE UROBILINOGEN - DIPSTICK 0.2 E.U./dL (0.2)
[2021-12-21 14:09] LABS: URINE LEUK ESTERASE MODERATE (NEGATIVE); URINE NITRITE - DIPSTICK POSITIVE (Negative)
[2021-12-21 14:11] LABS: URINE BACTERIA MODERATE hpf; URINE EPITHELIAL CELLS FEW EPI/hpf (0-FEW)
[2021-12-21 14:19] LABS: ALKALINE PHOSPHATASE 75 u/l (38-126); ANION GAP 12 (6-22 (CALC)); BUN 20 mg/dL (8-23); BUN/CREATININE RATIO 15 (12-20 (CALC)); CARBON DIOXIDE 35 mmol/l (22-30); CHLORIDE 98 mmol/l (95-108); CREATININE 1.3 mg/dL (0.7-1.3); GFR FOR AFR.AMER. > 60 ML/MIN (>=60 (CALC)); GFR OTHER RACES 53 ML/MIN (>=60 (CALC)); POTASSIUM 3.3 mmol/l (3.5-5.1); SGOT/AST 23 u/l (19-48); SODIUM 141 mmol/l (137-146)
[2021-12-21 14:36] LABS: ALBUMIN 3.6 g/dL (3.2-5.0); TOTAL PROTEIN 7.5 g/dL (6.3-8.2)
[2021-12-21] MEDS ORDERED: BUMETANIDE1 MG PO (15:49)
[2021-12-21] MEDS ORDERED: DIGOXIN0.125 MG PO (15:50)
[2021-12-21] MEDS ORDERED: MIRTAZAPINE15 MG PO (15:50)
[2021-12-22] VITALS (97 sets, daily range): BP systolic 81–151; BP diastolic 39–74
[2021-12-22 05:25] LABS: HEMOGLOBIN 9.1 g/dl (14.0-18.0); IMMATURE GRANULOCYTES 0.3 % (0.0-5.0); MEAN CELL VOLUME 101.1 fL CALC (80.0-100.0); MEAN CORPUSCULAR HGB 32.4 pG CALC (26.0-32.0); NEUT# 10.15 thou/uL (1.82-7.42); RED BLOOD COUNT 2.81 mill/uL (4.70-6.10); RED CELL DISTRI WIDTH 20.7 % (11.5-15.5)
[2021-12-22 05:48] LABS: ANION GAP 10 (6-22 (CALC)); BUN 16 mg/dL (8-23); BUN/CREATININE RATIO 16 (12-20 (CALC)); CARBON DIOXIDE 30 mmol/l (22-30); CHLORIDE 104 mmol/l (95-108); GFR FOR AFR.AMER. > 60 ML/MIN (>=60 (CALC)); GFR OTHER RACES > 60 ML/MIN (>=60 (CALC)); MAGNESIUM 1.5 mg/dL (1.6-2.3); POTASSIUM 3.2 mmol/l (3.5-5.1); SODIUM 141 mmol/l (137-146)
[2021-12-22 05:51] LABS: HEMATOCRIT 28.4 % (39.0-50.0)
[2021-12-22] MEDS ORDERED: GABAPENTIN100 MG PO (11:36)
[2021-12-23] VITALS (50 sets, daily range): BP systolic 133–155; BP diastolic 50–117
[2021-12-23 06:29] LABS: HEMATOCRIT 29.7 % (39.0-50.0); HEMOGLOBIN 9.4 g/dl (14.0-18.0); MEAN CELL VOLUME 101.7 fL CALC (80.0-100.0); MEAN CORPUSCULAR HGB 32.2 pG CALC (26.0-32.0); MEAN CORPUSCULAR HGB CONC 31.6 g/dL CAL (32.0-36.0); RED BLOOD COUNT 2.92 mill/uL (4.70-6.10); RED CELL DISTRI WIDTH 21.2 % (11.5-15.5)
[2021-12-23 06:32] LABS: ALBUMIN 2.9 g/dL (3.2-5.0); ALKALINE PHOSPHATASE 69 u/l (38-126); ANION GAP 11 (6-22 (CALC)); BUN 15 mg/dL (8-23); BUN/CREATININE RATIO 17 (12-20 (CALC)); CARBON DIOXIDE 29 mmol/l (22-30); CHLORIDE 107 mmol/l (95-108); CREATININE 0.9 mg/dL (0.7-1.3); GFR FOR AFR.AMER. > 60 ML/MIN (>=60 (CALC)); GFR OTHER RACES > 60 ML/MIN (>=60 (CALC)); POTASSIUM 3.5 mmol/l (3.5-5.1); SGOT/AST 21 u/l (19-48); SODIUM 143 mmol/l (137-146); TOTAL PROTEIN 6.3 g/dL (6.3-8.2)
[2021-12-23 06:39] LABS: BILIRUBIN, TOTAL 0.5 mg/dL (0.0-1.4); MAGNESIUM 2.2 mg/dL (1.6-2.3)
[2021-12-24 00:41] VITALS: BP 142/61
[2021-12-24 05:00] VITALS: BP 133/68
[2021-12-24 06:04] LABS: HEMATOCRIT 27.9 % (39.0-50.0); HEMOGLOBIN 8.6 g/dl (14.0-18.0); MEAN CELL VOLUME 103.3 fL CALC (80.0-100.0); MEAN CORPUSCULAR HGB 31.9 pG CALC (26.0-32.0); MEAN CORPUSCULAR HGB CONC 30.8 g/dL CAL (32.0-36.0); RED BLOOD COUNT 2.7 mill/uL (4.70-6.10); RED CELL DISTRI WIDTH 21.2 % (11.5-15.5)
[2021-12-24 06:35] VITALS: BP 160/75
[2021-12-24 06:36] VITALS: BP 160/75
[2021-12-24 06:39] LABS: ANION GAP 7 (6-22 (CALC)); BUN 15 mg/dL (8-23); BUN/CREATININE RATIO 17 (12-20 (CALC)); CARBON DIOXIDE 33 mmol/l (22-30); CHLORIDE 106 mmol/l (95-108); CREATININE 0.9 mg/dL (0.7-1.3); GFR FOR AFR.AMER. > 60 ML/MIN (>=60 (CALC)); GFR OTHER RACES > 60 ML/MIN (>=60 (CALC)); MAGNESIUM 2.2 mg/dL (1.6-2.3); POTASSIUM 3.1 mmol/l (3.5-5.1); SODIUM 143 mmol/l (137-146)
[2021-12-24 07:20] VITALS: BP 156/68
[2021-12-24 09:32] VITALS: BP 156/68
[2021-12-24] MEDS ORDERED: OMNICEF300 MG PO (11:46)
[2021-12-24] MEDS ORDERED: SOD CHLORIDE1 GM OD (11:47)
[2021-12-29] MEDS ORDERED: TRAMADOL HYDROC50 M1 PO (11:42)
== END 2021-12-24 14:55 | disposition home health service (06) | DRG 698 ==
LOC: ED 12:23 → ED-I 15:50 → ED 16:03 → ICU 16:04 → MS2 12-23 12:36
PROVIDERS: Nurse Practitioner; ADMIT Internal Medicine; ATTEND Internal Medicine
PROC: 05HM33Z Insertion of Infusion Device into Right Internal Jugular Vein, Percutaneous Approach (ICD-10-PCS; principal; 2021-12-21)
PROC: 3E043XZ Introduction of Vasopressor into Central Vein, Percutaneous Approach (ICD-10-PCS; 2021-12-21)
DX: T83.518A Infection and inflammatory reaction due to other urinary catheter, initial encounter (principal); A41.9 Sepsis, unspecified organism; G93.41 Metabolic encephalopathy; R65.21 Severe sepsis with septic shock; N39.0 Urinary tract infection, site not specified; I95.9 Hypotension, unspecified; I11.0 Hypertensive heart disease with heart failure; I50.9 Heart failure, unspecified; R33.9 Retention of urine, unspecified; E03.9 Hypothyroidism, unspecified; K21.9 Gastro-esophageal reflux disease without esophagitis; E78.5 Hyperlipidemia, unspecified; N40.0 Benign prostatic hyperplasia without lower urinary tract symptoms; I48.91 Unspecified atrial fibrillation; I25.10 Atherosclerotic heart disease of native coronary artery without angina pectoris; E66.01 Morbid (severe) obesity due to excess calories; G89.4 Chronic pain syndrome; B96.89 Other specified bacterial agents as the cause of diseases classified elsewhere; Y84.6 Urinary catheterization as the cause of abnormal reaction of the patient, or of later complication, without mention of misadventure at the time of the procedure; Z79.891 Long term (current) use of opiate analgesic; Z68.32 Body mass index [BMI] 32.0-32.9, adult; Z86.73 Personal history of transient ischemic attack (TIA), and cerebral infarction without residual deficits; Z95.820 Peripheral vascular angioplasty status with implants and grafts; Z87.440 Personal history of urinary (tract) infections; Z20.822 Contact with and (suspected) exposure to COVID-19; Z78.1 Physical restraint status
CPT/HCPCS: J3475

== ENCOUNTER 2021-12-27 12:58 | Emergency (ER) | payer MEDICARE ==
[~2021-12-27] VITALS: Ht 160 cm; Wt 86.0 kg
[2021-12-27] VITALS (10 sets, daily range): BP systolic 100–124; BP diastolic 40–60
[~2021-12-27 12:58] MED LIST changes: +BUMETANIDE1 MG PO; +GABAPENTIN100 MG PO; +MIRTAZAPINE15 MG PO; +SOD CHLORIDE1 GM OD
[2021-12-27 16:38] LABS: HEMATOCRIT 31.1 % (39.0-50.0); HEMOGLOBIN 9.8 g/dl (14.0-18.0); MEAN CELL VOLUME 102.3 fL CALC (80.0-100.0); MEAN CORPUSCULAR HGB 32.2 pG CALC (26.0-32.0); MEAN CORPUSCULAR HGB CONC 31.5 g/dL CAL (32.0-36.0); NEUT# 6.62 thou/uL (1.82-7.42); RED BLOOD COUNT 3.04 mill/uL (4.70-6.10); RED CELL DISTRI WIDTH 19.8 % (11.5-15.5)
[2021-12-27 16:38] LABS: URINE BILIRUBIN - DIPSTICK NEGATIVE (NEGATIVE); URINE BLOOD DIPSTICK NEGATIVE (NEGATIVE); URINE COLOR YELLOW; URINE GLUCOSE - DIPSTICK NEGATIVE (NEGATIVE); URINE KETONE NEGATIVE (NEGATIVE); URINE LEUK ESTERASE NEGATIVE (NEGATIVE); URINE PROTEIN - DIPSTICK NEGATIVE (NEG-TRACE); URINE UROBILINOGEN - DIPSTICK 0.2 E.U./dL (0.2)
[2021-12-27 16:42] LABS: URINE NITRITE - DIPSTICK NEGATIVE (Negative)
[2021-12-27 16:53] LABS: IMMATURE GRANULOCYTES 0.2 % (0.0-5.0)
[2021-12-27 16:54] LABS: ALBUMIN 3.2 g/dL (3.2-5.0); ALKALINE PHOSPHATASE 79 u/l (38-126); ANION GAP 11 (6-22 (CALC)); BILIRUBIN, TOTAL 0.5 mg/dL (0.0-1.4); BUN 13 mg/dL (8-23); BUN/CREATININE RATIO 13 (12-20 (CALC)); CARBON DIOXIDE 30 mmol/l (22-30); CHLORIDE 102 mmol/l (95-108); GFR FOR AFR.AMER. > 60 ML/MIN (>=60 (CALC)); GFR OTHER RACES > 60 ML/MIN (>=60 (CALC)); POTASSIUM 3.6 mmol/l (3.5-5.1); SGOT/AST 31 u/l (19-48); SODIUM 139 mmol/l (137-146); TOTAL PROTEIN 6.6 g/dL (6.3-8.2)
[2021-12-29] MEDS ORDERED: TRAMADOL HYDROC50 M1 PO (11:42)
== END 2021-12-27 17:49 | disposition home or self-care (01) ==
LOC: ED 12:58
PROVIDERS: Family Medicine
DX: M25.552 Pain in left hip (principal); I48.91 Unspecified atrial fibrillation; I25.10 Atherosclerotic heart disease of native coronary artery without angina pectoris; E78.5 Hyperlipidemia, unspecified; K21.9 Gastro-esophageal reflux disease without esophagitis; E66.01 Morbid (severe) obesity due to excess calories; Z95.1 Presence of aortocoronary bypass graft

== ENCOUNTER 2022-03-15 16:27 | Inpatient (IN) | payer MEDICARE ==
[2022-03-15] VITALS (19 sets, daily range): BP systolic 98–129; BP diastolic 46–72
[~2022-03-15] VITALS: Ht 160 cm; Wt 86.0 kg
[~2022-03-15 16:27] MED LIST changes: +LOPRESSOR 550 MG/TAB PO; -LOPRESSOR50 M2 PO; +TRAMADOL HYDROC50 M1 PO
[2022-03-15 17:11] LABS: HEMATOCRIT 28.8 % (39.0-50.0); HEMOGLOBIN 9.1 g/dl (14.0-18.0); IMMATURE GRANULOCYTES 0.2 % (0.0-5.0); MEAN CELL VOLUME 108.7 fL CALC (80.0-100.0); MEAN CORPUSCULAR HGB 34.3 pG CALC (26.0-32.0); MEAN CORPUSCULAR HGB CONC 31.6 g/dL CAL (32.0-36.0); NEUT# 5.96 thou/uL (1.82-7.42); RED BLOOD COUNT 2.65 mill/uL (4.70-6.10); RED CELL DISTRI WIDTH 18.3 % (11.5-15.5)
[2022-03-15 17:18] LABS: ALBUMIN 3.5 g/dL (3.2-5.0); ALKALINE PHOSPHATASE 160 u/l (38-126); ANION GAP 8 (6-22 (CALC)); BUN 11 mg/dL (8-23); BUN/CREATININE RATIO 9 (12-20 (CALC)); CARBON DIOXIDE 30 mmol/l (22-30); CHLORIDE 104 mmol/l (95-108); CREATININE 1.3 mg/dL (0.7-1.3); GFR FOR AFR.AMER. > 60 ML/MIN (>=60 (CALC)); GFR OTHER RACES 53 ML/MIN (>=60 (CALC)); LIPASE 22 u/l (23-300); POTASSIUM 3.2 mmol/l (3.5-5.1); SGOT/AST 27 u/l (19-48); SODIUM 139 mmol/l (137-146); TOTAL PROTEIN 6.8 g/dL (6.3-8.2)
[2022-03-15 17:19] LABS: BILIRUBIN, TOTAL 0.4 mg/dL (0.0-1.4)
[2022-03-15 20:18] LABS: URINE BILIRUBIN - DIPSTICK NEGATIVE (NEGATIVE); URINE BLOOD DIPSTICK NEGATIVE (NEGATIVE); URINE COLOR YELLOW; URINE GLUCOSE - DIPSTICK NEGATIVE (NEGATIVE); URINE KETONE NEGATIVE (NEGATIVE); URINE PROTEIN - DIPSTICK NEGATIVE (NEG-TRACE); URINE SPECIFIC GRAVITY 1.025
[2022-03-15 20:27] LABS: URINE LEUK ESTERASE SMALL (NEGATIVE); URINE NITRITE - DIPSTICK POSITIVE (Negative)
[2022-03-15 20:28] LABS: URINE BACTERIA MANY hpf; URINE SQUAMOUS EPITHELIAL CELL FEW EPI/hpf (0-FEW)
[2022-03-16] VITALS (9 sets, daily range): BP systolic 78–119; BP diastolic 34–61
[2022-03-16 05:55] LABS: HEMOGLOBIN 8.1 g/dl (14.0-18.0); IMMATURE GRANULOCYTES 0.1 % (0.0-5.0); MEAN CELL VOLUME 108.2 fL CALC (80.0-100.0); MEAN CORPUSCULAR HGB 35.1 pG CALC (26.0-32.0); MEAN CORPUSCULAR HGB CONC 32.4 g/dL CAL (32.0-36.0); NEUT# 4.04 thou/uL (1.82-7.42); RED BLOOD COUNT 2.31 mill/uL (4.70-6.10); RED CELL DISTRI WIDTH 18.2 % (11.5-15.5)
[2022-03-16 06:10] LABS: ALKALINE PHOSPHATASE 126 u/l (38-126); BILIRUBIN, TOTAL 0.5 mg/dL (0.0-1.4); BUN 10 mg/dL (8-23); BUN/CREATININE RATIO 12 (12-20 (CALC)); CARBON DIOXIDE 29 mmol/l (22-30); CHLORIDE 107 mmol/l (95-108); CREATININE 0.9 mg/dL (0.7-1.3); GFR FOR AFR.AMER. > 60 ML/MIN (>=60 (CALC)); GFR OTHER RACES > 60 ML/MIN (>=60 (CALC)); SGOT/AST 22 u/l (19-48); SODIUM 139 mmol/l (137-146); TOTAL PROTEIN 5.5 g/dL (6.3-8.2)
[2022-03-16 06:12] LABS: ALBUMIN 2.6 g/dL (3.2-5.0); ANION GAP 7 (6-22 (CALC)); POTASSIUM 3.7 mmol/l (3.5-5.1)
[2022-03-17 00:02] VITALS: BP 92/43
[2022-03-17 04:23] VITALS: BP 137/50
[2022-03-17 05:29] LABS: HEMATOCRIT 27.5 % (39.0-50.0); HEMOGLOBIN 8.6 g/dl (14.0-18.0); MEAN CELL VOLUME 112.7 fL CALC (80.0-100.0); MEAN CORPUSCULAR HGB 35.2 pG CALC (26.0-32.0); MEAN CORPUSCULAR HGB CONC 31.3 g/dL CAL (32.0-36.0); RED BLOOD COUNT 2.44 mill/uL (4.70-6.10); RED CELL DISTRI WIDTH 18.2 % (11.5-15.5)
[2022-03-17 05:49] LABS: ANION GAP 9 (6-22 (CALC)); BUN 13 mg/dL (8-23); BUN/CREATININE RATIO 12 (12-20 (CALC)); CARBON DIOXIDE 27 mmol/l (22-30); CHLORIDE 108 mmol/l (95-108); CREATININE 1.1 mg/dL (0.7-1.3); GFR FOR AFR.AMER. > 60 ML/MIN (>=60 (CALC)); GFR OTHER RACES > 60 ML/MIN (>=60 (CALC)); SODIUM 139 mmol/l (137-146)
[2022-03-17 05:56] LABS: POTASSIUM 4.6 mmol/l (3.5-5.1)
[2022-03-17 07:15] VITALS: BP 103/55
[2022-03-17 10:14] VITALS: BP 108/45
[2022-03-17 15:00] VITALS: BP 116/58
[2022-03-18] VITALS (10 sets, daily range): BP systolic 95–125; BP diastolic 42–82
[2022-03-18 05:49] LABS: HEMATOCRIT 24.6 % (39.0-50.0); HEMOGLOBIN 7.8 g/dl (14.0-18.0); IMMATURE GRANULOCYTES 0.2 % (0.0-5.0); MEAN CELL VOLUME 109.3 fL CALC (80.0-100.0); MEAN CORPUSCULAR HGB 34.7 pG CALC (26.0-32.0); MEAN CORPUSCULAR HGB CONC 31.7 g/dL CAL (32.0-36.0); NEUT# 5.29 thou/uL (1.82-7.42); RED BLOOD COUNT 2.25 mill/uL (4.70-6.10); RED CELL DISTRI WIDTH 18.2 % (11.5-15.5)
[2022-03-18 06:30] LABS: ALBUMIN 2.2 g/dL (3.2-5.0); ALKALINE PHOSPHATASE 113 u/l (38-126); ANION GAP 7 (6-22 (CALC)); BILIRUBIN, TOTAL 0.7 mg/dL (0.0-1.4); BUN 11 mg/dL (8-23); BUN/CREATININE RATIO 12 (12-20 (CALC)); CARBON DIOXIDE 27 mmol/l (22-30); CHLORIDE 107 mmol/l (95-108); CREATININE 0.9 mg/dL (0.7-1.3); GFR FOR AFR.AMER. > 60 ML/MIN (>=60 (CALC)); GFR OTHER RACES > 60 ML/MIN (>=60 (CALC)); MAGNESIUM 1.9 mg/dL (1.6-2.3); POTASSIUM 4.1 mmol/l (3.5-5.1); SGOT/AST 26 u/l (19-48); SODIUM 137 mmol/l (137-146)
[2022-03-19] VITALS (8 sets, daily range): BP systolic 106–117; BP diastolic 45–69
[2022-03-19 08:19] LABS: ANION GAP 9 (6-22 (CALC)); BUN 14 mg/dL (8-23); BUN/CREATININE RATIO 15 (12-20 (CALC)); CARBON DIOXIDE 27 mmol/l (22-30); CHLORIDE 107 mmol/l (95-108); CREATININE 0.9 mg/dL (0.7-1.3); GFR FOR AFR.AMER. > 60 ML/MIN (>=60 (CALC)); GFR OTHER RACES > 60 ML/MIN (>=60 (CALC)); POTASSIUM 4.4 mmol/l (3.5-5.1); SODIUM 139 mmol/l (137-146)
[2022-03-19 14:00] LABS: HEMATOCRIT 28.6 % (39.0-50.0); MEAN CELL VOLUME 111.3 fL CALC (80.0-100.0); MEAN CORPUSCULAR HGB CONC 31.5 g/dL CAL (32.0-36.0); RED BLOOD COUNT 2.57 mill/uL (4.70-6.10)
[2022-03-19] MEDS ORDERED: OFLOXACIN0.3 % OD (20:41)
[2022-03-20] VITALS (8 sets, daily range): BP systolic 94–120; BP diastolic 42–64
[2022-03-20 05:16] LABS: HEMATOCRIT 23.4 % (39.0-50.0); HEMOGLOBIN 7.5 g/dl (14.0-18.0); MEAN CELL VOLUME 109.9 fL CALC (80.0-100.0); MEAN CORPUSCULAR HGB 35.2 pG CALC (26.0-32.0); MEAN CORPUSCULAR HGB CONC 32.1 g/dL CAL (32.0-36.0); RED BLOOD COUNT 2.13 mill/uL (4.70-6.10); RED CELL DISTRI WIDTH 19.1 % (11.5-15.5)
[2022-03-20 05:46] LABS: ANION GAP 7 (6-22 (CALC)); BUN 17 mg/dL (8-23); BUN/CREATININE RATIO 16 (12-20 (CALC)); CARBON DIOXIDE 27 mmol/l (22-30); CHLORIDE 108 mmol/l (95-108); GFR FOR AFR.AMER. > 60 ML/MIN (>=60 (CALC)); GFR OTHER RACES > 60 ML/MIN (>=60 (CALC)); MAGNESIUM 1.9 mg/dL (1.6-2.3); SODIUM 137 mmol/l (137-146)
[2022-03-20 05:47] LABS: DIGOXIN 1.2 ng/mL (0.8-2.0)
[2022-03-21] VITALS (8 sets, daily range): BP systolic 106–124; BP diastolic 42–62
[2022-03-21 05:11] LABS: HEMATOCRIT 25.4 % (39.0-50.0); HEMOGLOBIN 8.1 g/dl (14.0-18.0); MEAN CELL VOLUME 110.4 fL CALC (80.0-100.0); MEAN CORPUSCULAR HGB 35.2 pG CALC (26.0-32.0); MEAN CORPUSCULAR HGB CONC 31.9 g/dL CAL (32.0-36.0); RED BLOOD COUNT 2.3 mill/uL (4.70-6.10); RED CELL DISTRI WIDTH 19.4 % (11.5-15.5)
[2022-03-21 05:27] LABS: ANION GAP 7 (6-22 (CALC)); BUN 14 mg/dL (8-23); BUN/CREATININE RATIO 14 (12-20 (CALC)); CARBON DIOXIDE 29 mmol/l (22-30); CHLORIDE 110 mmol/l (95-108); GFR FOR AFR.AMER. > 60 ML/MIN (>=60 (CALC)); GFR OTHER RACES > 60 ML/MIN (>=60 (CALC)); POTASSIUM 3.8 mmol/l (3.5-5.1); SODIUM 141 mmol/l (137-146)
[2022-03-22 00:17] VITALS: BP 94/42
[2022-03-22 04:44] VITALS: BP 92/41
[2022-03-22 06:21] VITALS: BP 99/51
[2022-03-22 08:10] VITALS: BP 112/42
[2022-03-22 08:19] VITALS: BP 110/51
[2022-03-22 10:23] VITALS: BP 120/77
[2022-03-22] MEDS ORDERED: FOLIC ACID1 M1 PO (11:18)
[2022-03-22] MEDS ORDERED: [UNRECOGNIZED DRUG - OTHER] PO (11:19)
== END 2022-03-22 14:12 | DRG 871 ==
LOC: ED 16:27 → ED-I 16:52 → ED 16:52 → ED-I 19:29 → ED 19:43 → MS2 19:44
PROVIDERS: Nurse Practitioner; ADMIT Internal Medicine; ATTEND Internal Medicine
PROC: 0T9B70Z Drainage of Bladder with Drainage Device, Via Natural or Artificial Opening (ICD-10-PCS; principal; 2022-03-15)
DX: A41.9 Sepsis, unspecified organism (principal); G92.8 Other toxic encephalopathy; N39.0 Urinary tract infection, site not specified; E87.1 Hypo-osmolality and hyponatremia; F03.918 Unspecified dementia, unspecified severity, with other behavioral disturbance; T40.421A Poisoning by tramadol, accidental (unintentional), initial encounter; I48.91 Unspecified atrial fibrillation; I10 Essential (primary) hypertension; I25.10 Atherosclerotic heart disease of native coronary artery without angina pectoris; E78.5 Hyperlipidemia, unspecified; K21.9 Gastro-esophageal reflux disease without esophagitis; M19.90 Unspecified osteoarthritis, unspecified site; F41.9 Anxiety disorder, unspecified; R33.8 Other retention of urine; D64.9 Anemia, unspecified; G89.4 Chronic pain syndrome; E53.8 Deficiency of other specified B group vitamins; M48.061 Spinal stenosis, lumbar region without neurogenic claudication; E03.9 Hypothyroidism, unspecified; G62.9 Polyneuropathy, unspecified; B96.1 Klebsiella pneumoniae [K. pneumoniae] as the cause of diseases classified elsewhere; E66.01 Morbid (severe) obesity due to excess calories; Z87.440 Personal history of urinary (tract) infections; Z68.32 Body mass index [BMI] 32.0-32.9, adult; Z86.73 Personal history of transient ischemic attack (TIA), and cerebral infarction without residual deficits; Z79.891 Long term (current) use of opiate analgesic; Z95.820 Peripheral vascular angioplasty status with implants and grafts; Z95.1 Presence of aortocoronary bypass graft; Z91.81 History of falling
CPT/HCPCS: G0378; J1160; J1756; J3420; S0166

== ENCOUNTER 2022-03-28 16:22 | Emergency (ER) | payer MEDICARE ==
[2022-03-28] VITALS (7 sets, daily range): BP systolic 112–131; BP diastolic 51–71
[~2022-03-28] VITALS: Ht 160 cm; Wt 90.0 kg
[~2022-03-28 16:22] MED LIST changes: +FOLIC ACID1 M1 PO; +OFLOXACIN0.3 % OD; +[UNRECOGNIZED DRUG - OTHER] PO
[2022-03-28 16:43] LABS: HEMATOCRIT 30.1 % (39.0-50.0); HEMOGLOBIN 9.4 g/dl (14.0-18.0); IMMATURE GRANULOCYTES 0.2 % (0.0-5.0); MEAN CELL VOLUME 112.3 fL CALC (80.0-100.0); MEAN CORPUSCULAR HGB 35.1 pG CALC (26.0-32.0); MEAN CORPUSCULAR HGB CONC 31.2 g/dL CAL (32.0-36.0); NEUT# 5.47 thou/uL (1.82-7.42); RED BLOOD COUNT 2.68 mill/uL (4.70-6.10)
[2022-03-28 17:13] LABS: ANION GAP 10 (6-22 (CALC)); BUN 12 mg/dL (8-23); BUN/CREATININE RATIO 12 (12-20 (CALC)); CARBON DIOXIDE 26 mmol/l (22-30); CHLORIDE 106 mmol/l (95-108); GFR FOR AFR.AMER. > 60 ML/MIN (>=60 (CALC)); GFR OTHER RACES > 60 ML/MIN (>=60 (CALC)); POTASSIUM 4.3 mmol/l (3.5-5.1); SODIUM 137 mmol/l (137-146)
== END 2022-03-28 17:52 | disposition home or self-care (01) ==
LOC: ED 16:22
PROVIDERS: Family Medicine
DX: S70.01XA Contusion of right hip, initial encounter (principal); S30.0XXA Contusion of lower back and pelvis, initial encounter; I48.91 Unspecified atrial fibrillation; I10 Essential (primary) hypertension; I25.10 Atherosclerotic heart disease of native coronary artery without angina pectoris; M19.90 Unspecified osteoarthritis, unspecified site; I71.40 Abdominal aortic aneurysm, without rupture, unspecified; K21.9 Gastro-esophageal reflux disease without esophagitis; E66.01 Morbid (severe) obesity due to excess calories; W01.0XXA Fall on same level from slipping, tripping and stumbling without subsequent striking against object, initial encounter; Y92.009 Unspecified place in unspecified non-institutional (private) residence as the place of occurrence of the external cause; Z95.1 Presence of aortocoronary bypass graft; Z95.9 Presence of cardiac and vascular implant and graft, unspecified

== ENCOUNTER 2022-08-18 09:15 | Emergency (ER) | payer MEDICARE ==
[2022-08-18] VITALS (10 sets, daily range): BP systolic 88–102; BP diastolic 44–60
[~2022-08-18] VITALS: Ht 160 cm; Wt 108.0 kg
[2022-08-18 09:50] LABS: IMMATURE GRANULOCYTES 0.4 % (0.0-5.0); MEAN CELL VOLUME 106.4 fL CALC (80.0-100.0); MEAN CORPUSCULAR HGB 34.3 pG CALC (26.0-32.0); MEAN CORPUSCULAR HGB CONC 32.3 g/dL CAL (32.0-36.0); RED BLOOD COUNT 2.33 mill/uL (4.70-6.10); RED CELL DISTRI WIDTH 17.6 % (11.5-15.5)
[2022-08-18 09:59] LABS: HEMATOCRIT 24.8 % (39.0-50.0); MANUAL DIFFERENTIAL YES; PLATELET COUNT 44 thou/uL (130-400)
[2022-08-18 10:07] LABS: ALBUMIN 3.1 g/dL (3.2-5.0); ALKALINE PHOSPHATASE 147 u/l (38-126); ANION GAP 11 (6-22 (CALC)); BUN 33 mg/dL (8-23); BUN/CREATININE RATIO 24 (12-20 (CALC)); CARBON DIOXIDE 30 mmol/l (22-30); CHLORIDE 98 mmol/l (95-108); CREATININE 1.3 mg/dL (0.7-1.3); GFR FOR AFR.AMER. > 60 ML/MIN (>=60 (CALC)); GFR OTHER RACES 53 ML/MIN (>=60 (CALC)); POTASSIUM 3.9 mmol/l (3.5-5.1); SGOT/AST 45 u/l (19-48); SODIUM 135 mmol/l (137-146); TOTAL PROTEIN 6.3 g/dL (6.3-8.2)
[2022-08-18 10:10] LABS: BAND 0 % (0-8); PLATELET ESTIMATE MARKED DECREASE
[2022-08-18 10:16] LABS: BILIRUBIN, TOTAL 0.9 mg/dL (0.2-1.3)
[2022-08-18 10:17] LABS: PROTHROMBIN TIME 64.6 SECONDS (9.0-12.5)
[2022-08-18 10:18] LABS: INTERNATIONAL NORMALIZED RATIO 7.1 RATIO (0.7-1.3)
[2022-08-18 10:57] LABS: URINE BILIRUBIN - DIPSTICK NEGATIVE (NEGATIVE); URINE BLOOD DIPSTICK NEGATIVE (NEGATIVE); URINE COLOR YELLOW; URINE GLUCOSE - DIPSTICK NEGATIVE (NEGATIVE); URINE KETONE NEGATIVE (NEGATIVE); URINE LEUK ESTERASE TRACE (NEGATIVE); URINE PROTEIN - DIPSTICK NEGATIVE (NEG-TRACE); URINE SPECIFIC GRAVITY <=1.005; URINE UROBILINOGEN - DIPSTICK 0.2 E.U./dL (0.2)
[2022-08-18 10:58] LABS: URINE NITRITE - DIPSTICK NEGATIVE (Negative)
== END 2022-08-18 12:40 | disposition short-term general hospital (02) ==
LOC: ED 09:15
PROVIDERS: Family Medicine
DX: I62.01 Nontraumatic acute subdural hemorrhage (principal); R47.01 Aphasia; A41.9 Sepsis, unspecified organism; R65.20 Severe sepsis without septic shock; G93.41 Metabolic encephalopathy; I95.9 Hypotension, unspecified; E86.1 Hypovolemia; E87.1 Hypo-osmolality and hyponatremia; D63.8 Anemia in other chronic diseases classified elsewhere; I10 Essential (primary) hypertension; I48.91 Unspecified atrial fibrillation; I25.10 Atherosclerotic heart disease of native coronary artery without angina pectoris; E03.9 Hypothyroidism, unspecified; E78.5 Hyperlipidemia, unspecified; K21.9 Gastro-esophageal reflux disease without esophagitis; M48.061 Spinal stenosis, lumbar region without neurogenic claudication; E66.01 Morbid (severe) obesity due to excess calories; G89.4 Chronic pain syndrome; Z79.891 Long term (current) use of opiate analgesic; Z86.73 Personal history of transient ischemic attack (TIA), and cerebral infarction without residual deficits; Z95.1 Presence of aortocoronary bypass graft; Z86.79 Personal history of other diseases of the circulatory system; Z95.820 Peripheral vascular angioplasty status with implants and grafts; Z79.01 Long term (current) use of anticoagulants
CPT/HCPCS: Q9967